=== PATIENT | female | born 1930 | race Caucasian/White ===

== ENCOUNTER → 2016-11-14 | Outpatient (CLI) | payer MEDICARE ==
--- NOTE | 2016-11-14 15:22 | XR ---
EXAMINATION TYPE: XR nasal bone DATE OF EXAM: 11/14/2016 2:43 PM COMPARISON: NONE HISTORY: Pain and bruising TECHNIQUE: 2 view nasal bone supplemented with facial bone study FINDINGS: No acute fractures evident. There is soft tissue swelling over the bridge of the nose. Maxi llary spine appears intact. IMPRESSION: 1. No acute nasal bone fracture
--- NOTE | 2016-11-14 15:23 | XR ---
EXAMINATION TYPE: XR facial bones complete DATE OF EXAM: 11/14/2016 2:43 PM COMPARISON: NONE HISTORY: Chest pain, fall, contusion TECHNIQUE: Facial bones examined in 3 projections FINDINGS: Paranasal sinuses appear clear. The septum is midline. No acute fractures are identified. O rbital floors appear intact. Sella is unremarkable. IMPRESSION: 1. Normal facial bone study.
--- NOTE | 2016-11-14 15:24 | XR ---
EXAMINATION TYPE: XR chest 2V DATE OF EXAM: 11/14/2016 2:43 PM COMPARISON: September 27, 2015 HISTORY: Shortness of breath TECHNIQUE: Frontal and lateral views of the chest are obtained. FINDINGS: Scattered senescent parenchymal changes noted. Hyperinflation compatible with COPD. No evidence for infiltrate. No evidence for atelectasis. Heart size is stable. Mediastinal structures are stable and grossly unremarkable. There is a large fixed hiatal hernia. No evidence for hilar prominence. Degenerative changes dorsal spine. IMPRESSION: 1. No evidence for acute pulmonary disease.
== END | disposition home or self-care (01) ==
LOC: RADXRMAIN 14:02
PROVIDERS: ATTEND Family Medicine
DX: S02.92XS Unspecified fracture of facial bones, sequela (principal); R07.9 Chest pain, unspecified
CPT/HCPCS: 70150; 70160; 71020

== ENCOUNTER 2017-09-24 23:16 | Emergency (ER) | payer MEDICARE ==
[2017-09-24 23:34] VITALS: PULSE 76; RESP 18; TEMP 97.1
--- NOTE | 2017-09-25 00:49 | ED ---
Back Pain HPI - General Chief Complaint: Back Pain/Injury Stated Complaint: Back Spasms Time Seen by Provider: 09/24/17 23:36 Source: patient, EMS, RN notes reviewed Limitations: no limitations - History of Present Illness Initial Comments: This is an 87-year-old female presents to the emergency department with chief complaint of back spasms. Patient states that she developed mid back pain that radiates to the left side of her pain yesterday. She describes these as back spasms. She states the pain is made worse with going from sitting to standing position and with walking. She states that the pain started yesterday but has worsened today. She states she does have a history of sciatica. Patient states that she has not had any recent falls, injuries or trauma. 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 On Friday after having family over, patient of vacuum and when feels like that might have been what injured her back. She denies any chest pain or shortness of breath, fevers or chills, abdominal pain, nausea or vomiting, diarrhea or constipation, dysuria or hematuria. Patient states that she did take Tylenol at 7, 2 in 10:00 today. - Related Data Home Medications Medication Instructions Recorded Confirmed Aspirin 81 mg PO DAILY 08/22/15 09/24/17 Losartan-Hctz 50-12.5 mg [Hyzaar 1 tab PO DAILY 08/22/15 09/24/17 50-12.5] Simvastatin [Zocor] 40 mg PO DAILY 08/22/15 09/24/17 Metoprolol Succinate [Toprol XL] 25 mg PO BID 09/26/15 09/24/17 Multivitamins, Thera [Multivitamin] 1 tab PO DAILY 09/26/15 09/24/17 Previous Rx's Medication Instructions Recorded Diazepam [Valium] 2 mg PO TID #12 tab 09/25/17 Allergies Allergy/AdvReac Type Severity Reaction Status Date / Time Penicillins Allergy Rash/Hives Verified 09/24/17 23:45 enoxaparin sodium AdvReac Unknown Verified 09/24/17 23:45 [From Lovenox] heparin AdvReac Unknown Verified 09/24/17 23:45 Review of Systems ROS Statement: Those systems with pertinent positive or pertinent negative responses have been documented in the HPI. ROS Other: All systems not noted in ROS Statement are negative. Past Medical History Past Medical History: Cancer, Heart Failure, GERD/Reflux, Hyperlipidemia, Hypertension, Osteoarthritis (OA), Pneumonia Additional Past Medical History / Comment(s): pne x2, basal cell skin ca(face), ddd, sciatic nerce pain,diverticultis History of Any Multi-Drug Resistant Organisms: MRSA Date of last positivie culture/infection: 03-28-15/ 06-09-15 MDRO Source:: left hand 2nd digit/ lt breast Past Surgical History: Adenoidectomy, Cholecystectomy, Hysterectomy, Orthopedic Surgery, Tonsillectomy Additional Past Surgical History / Comment(s): lee KNEE REPLACEMENTS,lee CARPAL TUNNEL,bunionectomy lt foot has screws in place, rt foot screws removed, neuroma 's removed from 2 toes, deceated septum repair, partial hysterectomy, kidney stone, colonoscopy. Past Anesthesia/Blood Transfusion Reactions: No Reported Reaction Past Psychological History: Depression Smoking Status: Never smoker Past Alcohol Use History: Rare Past Drug Use History: None Reported - Past Family History Father Family Medical History: Congestive Heart Failure (CHF) Mother Family Medical History: Cancer Additional Family Medical History / Comment(s): lung cancer General Exam - General Exam Comments Initial Comments: General: Awake and alert, well-developed; in no apparent distress. HEENT: Head atraumatic, normocephalic. Pupils are equal, round and reactive to light. Extraocular movements intact. Oropharynx moist without erythema or exudate. Neck: Supple. Normal ROM. Cardiovascular: Regular rate and rhythm. No murmurs, rubs or gallops. Chest symmetrical. Respiratory: Lungs clear to auscultation bilaterally. No wheezes, rales or rhonchi. Normal respiratory effort with no use of accessory muscles. Abdomen: Soft, non-tender, non-distended. No rigidity, rebound or guarding. Normal bowel sounds in all 4 quadrants. Musculoskeletal: Normal ROM, no tenderness bilateral upper and lower extremities. Normal range of motion of spine. There is left sided thoracic paraspinal muscle tenderness on palpation. No CVA tenderness bilaterally. No bilateral pedal edema. Pedal and radial pulses are 2+ equal and palpable bilaterally. Skin: [place], warm and dry without rashes or lesions. Neurological: Alert and oriented x3. CN II-XII grossly intact. Speech is fluent and answers are appropriate. No focal neuro deficits. Psychiatric: Normal mood and affect. No overt signs of depression or anxiety noted. l Limitations: no limitations Course Vital Signs 09/24/17 23:29 Temperature 97.1 F L Pulse Rate 76 Respiratory 18 Rate Blood Pressure 169/76 O2 Sat by Pulse 99 Oximetry Medical Decision Making - Medical Decision Making This is an 87-year-old female presents to the emergency department with chief complaint of back spasms. Patient states she feels like she may have injured her back while vacuuming on Friday. She reports mid back spasms that radiate to the left side. She states the pain is made worse with going from sitting to standing position and with walking. She states she has been taking Tylenol. Denies any urinary symptoms. Has no other complaints. Patient's vital signs are stable and she is in no acute distress. A full workup was performed. CBC, CMP, cardiac profile/troponin and UA were unremarkable. X-ray thoracic spine revealed no acute changes. Chest x-ray revealed no acute cardiopulmonary processes. Patient will be discharged home with a prescription for Valium and recommended taking Tylenol. Patient is to follow-up with her primary care provider. She is in agreement with [facility] voices understanding. all questions were answered. - Lab Data Result diagrams: 09/25/17 00:50 09/25/17 00:50 Lab Results 09/25/17 09/25/17 09/25/17 Range/Units 00:50 00:50 00:50 WBC 9.5 (3.8-10.6) k/uL RBC 4.11 (3.80-5.40) m/uL Hgb 13.2 (11.4-16.0) gm/dL Hct 37.6 (34.0-46.0) % MCV 91.5 (80.0-100.0) fL MCH 32.2 (25.0-35.0) pg MCHC 35.2 (31.0-37.0) g/dL RDW 12.3 (11.5-15.5) % Plt Count 222 (150-450) k/uL Neutrophils % 86 % Lymphocytes % 8 % Monocytes % 4 % Eosinophils % 1 % Basophils % 0 % Neutrophils # 8.2 H (1.3-7.7) k/uL Lymphocytes # 0.8 L (1.0-4.8) k/uL Monocytes # 0.4 (0-1.0) k/uL Eosinophils # 0.1 (0-0.7) k/uL Basophils # 0.0 (0-0.2) k/uL PT (9.0-12.0) sec INR (<1.2) APTT (22.0-30.0) sec Sodium 136 L (137-145) mmol/L Potassium 3.9 (3.5-5.1) mmol/L Chloride 102 (98-107) mmol/L Carbon Dioxide 23 (22-30) mmol/L Anion Gap 11 mmol/L BUN 31 H (7-17) mg/dL Creatinine 0.70 (0.52-1.04) mg/dL Est GFR (CKD-EPI)AfAm >90 (>60 ml/min/1.73 sqM) Est GFR (CKD-EPI)NonAf 79 (>60 ml/min/1.73 sqM) Glucose 110 H (74-99) mg/dL Calcium 9.6 (8.4-10.2) mg/dL Total Bilirubin 0.6 (0.2-1.3) mg/dL AST 30 (14-36) U/L ALT 32 (9-52) U/L Alkaline Phosphatase 66 (38-126) U/L Total Creatine Kinase 45 (30-135) U/L CK-MB (CK-2) 1.8 (0.0-2.4) ng/mL CK-MB (CK-2) Rel Index 4.0 Troponin I <0.012 (0.000-0.034) ng/mL Total Protein 6.3 (6.3-8.2) g/dL Albumin 3.7 (3.5-5.0) g/dL Urine Color Urine Appearance (Clear) Urine pH (5.0-8.0) Ur Specific [place] (1.001-1.035) Urine Protein (Negative) Urine Glucose (UA) (Negative) Urine Ketones (Negative) Urine Blood (Negative) Urine Nitrite (Negative) Urine Bilirubin (Negative) Urine Urobilinogen (<2.0) mg/dL Ur Leukocyte Esterase (Negative) Urine RBC (0-5) /hpf Urine WBC (0-5) /hpf Ur Squamous Epith Cells (0-4) /hpf Urine Mucus (None) /hpf 09/25/17 09/25/17 Range/Units 00:50 02:00 WBC (3.8-10.6) k/uL RBC (3.80-5.40) m/uL Hgb (11.4-16.0) gm/dL Hct (34.0-46.0) % MCV (80.0-100.0) fL MCH (25.0-35.0) pg MCHC (31.0-37.0) g/dL RDW (11.5-15.5) % Plt Count (150-450) k/uL Neutrophils % % Lymphocytes % % Monocytes % % Eosinophils % % Basophils % % Neutrophils # (1.3-7.7) k/uL Lymphocytes # (1.0-4.8) k/uL Monocytes # (0-1.0) k/uL Eosinophils # (0-0.7) k/uL Basophils # (0-0.2) k/uL PT 10.4 (9.0-12.0) sec INR 1.1 (<1.2) APTT 22.8 (22.0-30.0) sec Sodium (137-145) mmol/L Potassium (3.5-5.1) mmol/L Chloride (98-107) mmol/L Carbon Dioxide (22-30) mmol/L Anion Gap mmol/L BUN (7-17) mg/dL Creatinine (0.52-1.04) mg/dL Est GFR (CKD-EPI)AfAm (>60 ml/min/1.73 sqM) Est GFR (CKD-EPI)NonAf (>60 ml/min/1.73 sqM) Glucose (74-99) mg/dL Calcium (8.4-10.2) mg/dL Total Bilirubin (0.2-1.3) mg/dL AST (14-36) U/L ALT (9-52) U/L Alkaline Phosphatase (38-126) U/L Total Creatine Kinase (30-135) U/L CK-MB (CK-2) (0.0-2.4) ng/mL CK-MB (CK-2) Rel Index Troponin I (0.000-0.034) ng/mL Total Protein (6.3-8.2) g/dL Albumin (3.5-5.0) g/dL Urine Color Yellow Urine Appearance Clear (Clear) Urine pH 6.5 (5.0-8.0) Ur Specific [place] 1.026 (1.001-1.035) Urine Protein Trace H (Negative) Urine Glucose (UA) Negative (Negative) Urine Ketones Negative (Negative) Urine Blood Negative (Negative) Urine Nitrite Negative (Negative) Urine Bilirubin Negative (Negative) Urine Urobilinogen <2.0 (<2.0) mg/dL Ur Leukocyte Esterase Small H (Negative) Urine RBC 3 (0-5) /hpf Urine WBC 4 (0-5) /hpf Ur Squamous Epith Cells <1 (0-4) /hpf Urine Mucus Rare H (None) /hpf - EKG Data EKG Comments: 0:23:03. Normal sinus rhythm. Minimal voltage criteria for LVH, may be normal variant. Ventricular rate 71 bpm, NH interval 192, QRS duration 86, QT/QTc 408/ 443. - Radiology Data Radiology results: report reviewed Chest x-ray impression: Pulmonary fibrotic changes. Large hiatal hernia. There is probably some patchy atelectasis in the right lower lobe. Inspiration is worse than last exam. No gross heart failure. X-ray thoracic spine impression: Multiple thoracic compression fractures are probably not changed significantly compared to old chest x-ray. Disposition Clinical Impression: Thoracic back pain Disposition: HOME SELF-CARE Condition: Good Instructions: Thoracic Back Strain (ED), Muscle Spasm (ED) Additional Instructions: Please take medications as prescribed. Please follow up with primary care provider within 1-2 days. Return to emergency department if symptoms should worsen or any concerns arise. Prescriptions: Diazepam [Valium] 2 mg PO TID #12 tab Referrals: Kristopher Neely DO [Primary Care Provider] - 1-2 days Time of Disposition: 02:28
--- NOTE | 2017-09-25 00:56 | XR ---
EXAMINATION TYPE: XR chest 2V DATE OF EXAM: 09/25/2017 COMPARISON: 11/14/2016 HISTORY: Back pain TECHNIQUE: Frontal and lateral views of the chest are obtained. FINDINGS: There is a hiatal hernia. There is coarse interstitial density in the mid and lower lung f ields. There is no gross heart failure. Thoracic aorta is atherosclerotic and tortuous. There is sign ificant arthritic change in the right shoulder joint. IMPRESSION: Pulmonary fibrotic changes. Large hiatal hernia. There is probably some patchy atelectas is in the right lower lobe. Inspiration is worse than last exam. No gross heart failure.
--- NOTE | 2017-09-25 00:59 | XR ---
EXAMINATION TYPE: XR thoracic spine 2V DATE OF EXAM: 09/25/2017 COMPARISON: Chest x-ray 11/14/2016 HISTORY: Back pain TECHNIQUE: 3 views FINDINGS: There is some thoracic kyphotic deformity. There is 30% anterior wedging of T11. There is 6 0% wedging of T9. There is probably 75% wedging of T7. Vertebra are difficult to be evaluated because of osteopenia. I see no thoracic paraspinal mass. There is a large hiatal hernia. There are some pul monary linear densities over the thoracic spine that obscure the vertebra. IMPRESSION: Multiple thoracic compression fractures are probably not changed significantly compared t o old chest x-ray.
[2017-09-25 01:03] LABS: Basophils % (A) 0 %; Eosinophils # (A) 0.1 k/uL (0-0.7); Eosinophils % (A) 1 %; HCT 37.6 % (34.0-46.0); HGB 13.2 gm/dL (11.4-16.0); Lymphocytes # (A) 0.8 k/uL (1.0-4.8); Lymphocytes % (A) 8 %; MCH 32.2 pg (25.0-35.0); MCHC 35.2 g/dL (31.0-37.0); MCV 91.5 fL (80.0-100.0); Mean Platelet Volume 7.1; Monocytes # (A) 0.4 k/uL (0-1.0); Monocytes % (A) 4 %; Neutrophils # (A) 8.2 k/uL (1.3-7.7); Neutrophils % (A) 86 %; Platelet Count 222 k/uL (150-450); RBC 4.11 m/uL (3.80-5.40); RDW 12.3 % (11.5-15.5); WBC 9.5 k/uL (3.8-10.6)
[2017-09-25 01:12] LABS: INR 1.1 (<1.2); Partial Thromboplastin Time 22.8 sec (22.0-30.0); Prothrombin Time 10.4 sec (9.0-12.0)
[2017-09-25 01:21] LABS: ALT 32 U/L (9-52); AST 30 U/L (14-36); Albumin 3.7 g/dL (3.5-5.0); Alkaline Phosphatase 66 U/L (38-126); Anion Gap 11 mmol/L; Blood Urea Nitrogen 31 mg/dL (7-17); Calcium 9.6 mg/dL (8.4-10.2); Carbon Dioxide 23 mmol/L (22-30); Chloride 102 mmol/L (98-107); Glucose 110 mg/dL (74-99); Potassium 3.9 mmol/L (3.5-5.1); Sodium 136 mmol/L (137-145); Total Bilirubin 0.6 mg/dL (0.2-1.3); Total Protein 6.3 g/dL (6.3-8.2)
[2017-09-25 01:22] LABS: Creatine Kinase 45 U/L (30-135)
[2017-09-25 01:35] LABS: Creatine Kinase MB 1.8 ng/mL (0.0-2.4); Troponin I <0.012 ng/mL (0.000-0.034)
[2017-09-25] MEDS ORDERED: KETOROLAC 30 MG/ML 1 ML VIAL IVP STA (02:01)
[2017-09-25 02:19] LABS: Appearance,Urine Clear (Clear); Bilirubin,Urine Negative (Negative); Blood,Urine Negative (Negative); Color,Urine Yellow; Glucose,Urine (UA) Negative (Negative); Ketones,Urine Negative (Negative); Leukocyte Esterase,Urine Small (Negative); Mucus,Urine Rare /hpf; Nitrite,Urine Negative (Negative); PH, Urine 6.5 (5.0-8.0); Protein,Urine Trace (Negative); RBC,Urine 3 /hpf (0-5); Specific Gravity,Urine 1.026 (1.001-1.035); Squamous Epithelial Cell,Urine <1 /hpf (0-4); Urobilinogen,Urine <2.0 mg/dL (<2.0); WBC,Urine 4 /hpf (0-5)
[2017-09-25 03:06] VITALS: BP 170/90
== END 2017-09-25 03:44 | disposition home or self-care (01) ==
LOC: EC 23:16
DX: M54.6 Pain in thoracic spine (principal); E78.5 Hyperlipidemia, unspecified; I11.0 Hypertensive heart disease with heart failure; I50.9 Heart failure, unspecified; M54.30 Sciatica, unspecified side; Z85.828 Personal history of other malignant neoplasm of skin; Z86.14 Personal history of Methicillin resistant Staphylococcus aureus infection; Z79.82 Long term (current) use of aspirin; Z79.899 Other long term (current) drug therapy; Z88.0 Allergy status to penicillin; Z88.8 Allergy status to other drugs, medicaments and biological substances
CPT/HCPCS: 99284; 96374; 36415; 93005; 80053; 82550; 82553; 84484; 85025; 85610; 85730; 81001; 72070; 71046; J1885

== ENCOUNTER 2017-10-04 11:32 | Inpatient (IN) | payer MEDICARE ==
[2017-10-04] MEDS ORDERED: RX INFO: IV CONTRAST WAS GIVEN 1 EACH MISC MISCELLANE PRN (11:58)
[2017-10-04] MEDS ORDERED: SODIUM CHLORIDE 0.9% 500 ML IV STA (11:58)
[2017-10-04] MEDS ORDERED: HYDROcodone/APAP 5-325MG 1 EACH TAB PO STA (12:02)
--- NOTE | 2017-10-04 12:02 | ED ---
General Adult HPI - General Chief complaint: Back Pain/Injury Stated complaint: Back Pain Time Seen by Provider: 10/04/17 11:37 Source: patient, family, EMS, RN notes reviewed Mode of arrival: EMS Limitations: no limitations - History of Present Illness Initial comments: This is a 87-year-old female presents via EMS with multiple complaints. Patient states that she was seen here week or so ago for back pain. Patient should follow up with her PCP who told her to continue Aleve and tramadol for pain. Patient is now she did medication she has not had a bowel movement. She feels constipated. Patient also cleanser quadrant abdominal pain. She's had a prior cholecystectomy, hysterectomy. Patient denies any chest pain or shortness breath at this time states that she's been having right lower rib pain seemed to radiate around. Patient complained the rest of back pain and her prior to her visit states that she still has issues with this at times. She also complains that she has fracture of her right shoulder. Patient denies any current nausea vomiting. She did state that she had 3 times a molelike to the bathroom and states that she had too much pain/fold on the ground. She isn' t suicidal to the intermittently. She denies any dysuria but has urinary frequency. - Related Data Home Medications Medication Instructions Recorded Confirmed Aspirin 81 mg PO DAILY 08/22/15 09/24/17 Losartan-Hctz 50-12.5 mg [Hyzaar 1 tab PO DAILY 08/22/15 09/24/17 50-12.5] Simvastatin [Zocor] 40 mg PO DAILY 08/22/15 09/24/17 Metoprolol Succinate [Toprol XL] 25 mg PO BID 09/26/15 09/24/17 Multivitamins, Thera [Multivitamin] 1 tab PO DAILY 09/26/15 09/24/17 Previous Rx's Medication Instructions Recorded Cyclobenzaprine [Flexeril] 5 mg PO DAILY #10 tab 09/25/17 Allergies Allergy/AdvReac Type Severity Reaction Status Date / Time Penicillins Allergy Rash/Hives Verified 09/24/17 23:45 enoxaparin sodium AdvReac Unknown Verified 09/24/17 23:45 [From Lovenox] heparin AdvReac Unknown Verified 09/24/17 23:45 Review of Systems ROS Statement: Those systems with pertinent positive or pertinent negative responses have been documented in the HPI. ROS Other: All systems not noted in ROS Statement are negative. Past Medical History Past Medical History: Cancer, Heart Failure, GERD/Reflux, Hyperlipidemia, Hypertension, Osteoarthritis (OA), Pneumonia Additional Past Medical History / Comment(s): pne x2, basal cell skin ca(face), ddd, sciatic nerce pain,diverticultis History of Any Multi-Drug Resistant Organisms: MRSA Date of last positivie culture/infection: 03-28-15/ 06-09-15 MDRO Source:: left hand 2nd digit/ lt breast Past Surgical History: Adenoidectomy, Cholecystectomy, Hysterectomy, Orthopedic Surgery, Tonsillectomy Additional Past Surgical History / Comment(s): lee KNEE REPLACEMENTS,lee CARPAL TUNNEL,bunionectomy lt foot has screws in place, rt foot screws removed, neuroma 's removed from 2 toes, deceated septum repair, partial hysterectomy, kidney stone, colonoscopy. Past Anesthesia/Blood Transfusion Reactions: No Reported Reaction Past Psychological History: Depression Smoking Status: Never smoker Past Alcohol Use History: Rare Past Drug Use History: None Reported - Past Family History Father Family Medical History: Congestive Heart Failure (CHF) Mother Family Medical History: Cancer Additional Family Medical History / Comment(s): lung cancer General Exam Limitations: no limitations General appearance: alert, in no apparent distress Head exam: Present: atraumatic, normocephalic, normal inspection Respiratory exam: Present: normal lung sounds bilaterally. Absent: respiratory distress, wheezes, rales, rhonchi, stridor, chest wall tenderness Cardiovascular Exam: Present: regular rate, normal rhythm, normal heart sounds. Absent: systolic murmur, diastolic murmur, rubs, gallop, clicks GI/Abdominal exam: Present: soft, normal bowel sounds. Absent: distended, tenderness, guarding, rebound, rigid Back exam: Present: full ROM. Absent: tenderness, CVA tenderness (R), CVA tenderness (L) Neurological exam: Present: alert, oriented X3, CN II-XII intact. Absent: motor sensory deficit Skin exam: Present: warm, dry, intact, normal color. Absent: rash Course Vital Signs 10/04/17 10/04/17 11:36 14:19 Temperature 97.2 F L Pulse Rate 68 74 Respiratory 16 15 Rate Blood Pressure 157/68 149/70 O2 Sat by Pulse 97 98 Oximetry Medical Decision Making - Medical Decision Making 87-year-old female presented for fall back pain abdominal pain. Patient be admitted at this time for dehydration, hyponatremia, compression fracture vertebral, pubic rami fracture. - Lab Data Result diagrams: 10/04/17 12:20 10/04/17 12:20 Lab Results 10/04/17 10/04/17 10/04/17 Range/Units 12:20 12:20 12:20 WBC 13.7 H (3.8-10.6) k/uL RBC 3.71 L (3.80-5.40) m/uL Hgb 12.3 (11.4-16.0) gm/dL Hct 32.9 L (34.0-46.0) % MCV 88.7 (80.0-100.0) fL MCH 33.1 (25.0-35.0) pg MCHC 37.3 H (31.0-37.0) g/dL RDW 12.4 (11.5-15.5) % Plt Count 130 L (150-450) k/uL Neutrophils % 91 % Lymphocytes % 4 % Monocytes % 4 % Eosinophils % 1 % Basophils % 0 % Neutrophils # 12.5 H (1.3-7.7) k/uL Lymphocytes # 0.5 L (1.0-4.8) k/uL Monocytes # 0.5 (0-1.0) k/uL Eosinophils # 0.1 (0-0.7) k/uL Basophils # 0.0 (0-0.2) k/uL PT (9.0-12.0) sec INR (<1.2) APTT (22.0-30.0) sec Sodium 123 L (137-145) mmol/L Potassium 4.6 (3.5-5.1) mmol/L Chloride 90 L (98-107) mmol/L Carbon Dioxide 23 (22-30) mmol/L Anion Gap 10 mmol/L BUN 22 H (7-17) mg/dL Creatinine 0.54 (0.52-1.04) mg/dL Est GFR (CKD-EPI)AfAm >90 (>60 ml/min/1.73 sqM) Est GFR (CKD-EPI)NonAf 86 (>60 ml/min/1.73 sqM) Glucose 98 (74-99) mg/dL Plasma Lactic Acid Ervin 1.1 (0.7-2.0) mmol/L Calcium 8.9 (8.4-10.2) mg/dL Total Bilirubin 1.6 H (0.2-1.3) mg/dL AST 63 H (14-36) U/L ALT 36 (9-52) U/L Alkaline Phosphatase 65 (38-126) U/L Total Creatine Kinase (30-135) U/L CK-MB (CK-2) (0.0-2.4) ng/mL CK-MB (CK-2) Rel Index Total Protein 6.4 (6.3-8.2) g/dL Albumin 3.6 (3.5-5.0) g/dL Amylase 42 (30-110) U/L Lipase 109 (23-300) U/L Urine Color Urine Appearance (Clear) Urine pH (5.0-8.0) Ur Specific [place] (1.001-1.035) Urine Protein (Negative) Urine Glucose (UA) (Negative) Urine Ketones (Negative) Urine Blood (Negative) Urine Nitrite (Negative) Urine Bilirubin (Negative) Urine Urobilinogen (<2.0) mg/dL Ur Leukocyte Esterase (Negative) 10/04/17 10/04/17 10/04/17 Range/Units 12:20 12:20 12:52 WBC (3.8-10.6) k/uL RBC (3.80-5.40) m/uL Hgb (11.4-16.0) gm/dL Hct (34.0-46.0) % MCV (80.0-100.0) fL MCH (25.0-35.0) pg MCHC (31.0-37.0) g/dL RDW (11.5-15.5) % Plt Count (150-450) k/uL Neutrophils % % Lymphocytes % % Monocytes % % Eosinophils % % Basophils % % Neutrophils # (1.3-7.7) k/uL Lymphocytes # (1.0-4.8) k/uL Monocytes # (0-1.0) k/uL Eosinophils # (0-0.7) k/uL Basophils # (0-0.2) k/uL PT 10.8 (9.0-12.0) sec INR 1.1 (<1.2) APTT 21.3 L (22.0-30.0) sec Sodium (137-145) mmol/L Potassium (3.5-5.1) mmol/L Chloride (98-107) mmol/L Carbon Dioxide (22-30) mmol/L Anion Gap mmol/L BUN (7-17) mg/dL Creatinine (0.52-1.04) mg/dL Est GFR (CKD-EPI)AfAm (>60 ml/min/1.73 sqM) Est GFR (CKD-EPI)NonAf (>60 ml/min/1.73 sqM) Glucose (74-99) mg/dL Plasma Lactic Acid Ervin (0.7-2.0) mmol/L Calcium (8.4-10.2) mg/dL Total Bilirubin (0.2-1.3) mg/dL AST (14-36) U/L ALT (9-52) U/L Alkaline Phosphatase (38-126) U/L Total Creatine Kinase 173 H (30-135) U/L CK-MB (CK-2) 7.4 H* (0.0-2.4) ng/mL CK-MB (CK-2) Rel Index 4.3 Total Protein (6.3-8.2) g/dL Albumin (3.5-5.0) g/dL Amylase (30-110) U/L Lipase (23-300) U/L Urine Color Yellow Urine Appearance Clear (Clear) Urine pH 6.5 (5.0-8.0) Ur Specific [place] 1.010 (1.001-1.035) Urine Protein Negative (Negative) Urine Glucose (UA) Negative (Negative) Urine Ketones Trace H (Negative) Urine Blood Negative (Negative) Urine Nitrite Negative (Negative) Urine Bilirubin Negative (Negative) Urine Urobilinogen <2.0 (<2.0) mg/dL Ur Leukocyte Esterase Negative (Negative) Disposition Clinical Impression: Compression fracture, Pubic ramus fracture, Fall, Dehydration, Hyponatremia Disposition: ADMITTED IP TO THIS [facility] Condition: Stable Referrals: Kristopher Neely DO [Primary Care Provider] - 1-2 days Time of Disposition: 14:56
[2017-10-04 12:51] LABS: Basophils % (A) 0 %; Eosinophils # (A) 0.1 k/uL (0-0.7); Eosinophils % (A) 1 %; HCT 32.9 % (34.0-46.0); HGB 12.3 gm/dL (11.4-16.0); Lymphocytes # (A) 0.5 k/uL (1.0-4.8); Lymphocytes % (A) 4 %; MCH 33.1 pg (25.0-35.0); MCHC 37.3 g/dL (31.0-37.0); MCV 88.7 fL (80.0-100.0); Mean Platelet Volume 8.2; Monocytes # (A) 0.5 k/uL (0-1.0); Monocytes % (A) 4 %; Neutrophils # (A) 12.5 k/uL (1.3-7.7); Neutrophils % (A) 91 %; Platelet Count 130 k/uL (150-450); RBC 3.71 m/uL (3.80-5.40); RDW 12.4 % (11.5-15.5); WBC 13.7 k/uL (3.8-10.6)
[2017-10-04 13:06] LABS: Amylase 42 U/L (30-110); Anion Gap 10 mmol/L; Calcium 8.9 mg/dL (8.4-10.2); Carbon Dioxide 23 mmol/L (22-30); Chloride 90 mmol/L (98-107); Glucose 98 mg/dL (74-99); Lipase 109 U/L (23-300); Sodium 123 mmol/L (137-145)
[2017-10-04 13:09] LABS: INR 1.1 (<1.2)
[2017-10-04 13:09] LABS: Appearance,Urine Clear (Clear); Bilirubin,Urine Negative (Negative); Blood,Urine Negative (Negative); Color,Urine Yellow; Glucose,Urine (UA) Negative (Negative); Ketones,Urine Trace (Negative); Leukocyte Esterase,Urine Negative (Negative); Nitrite,Urine Negative (Negative); PH, Urine 6.5 (5.0-8.0); Protein,Urine Negative (Negative); Urobilinogen,Urine <2.0 mg/dL (<2.0)
[2017-10-04 13:11] LABS: Partial Thromboplastin Time 21.3 sec (22.0-30.0); Prothrombin Time 10.8 sec (9.0-12.0)
[2017-10-04 13:17] LABS: Potassium 4.6 mmol/L (3.5-5.1)
[2017-10-04 13:18] LABS: Albumin 3.6 g/dL (3.5-5.0); Blood Urea Nitrogen 22 mg/dL (7-17); Total Bilirubin 1.6 mg/dL (0.2-1.3); Total Protein 6.4 g/dL (6.3-8.2)
[2017-10-04 13:19] LABS: ALT 36 U/L (9-52); AST 63 U/L (14-36); Alkaline Phosphatase 65 U/L (38-126)
[2017-10-04 13:24] LABS: Creatine Kinase MB 7.4 ng/mL (0.0-2.4)
--- NOTE | 2017-10-04 14:31 | CT ---
EXAMINATION TYPE: CT abdomen pelvis w con DATE OF EXAM: 10/04/2017 COMPARISON: CT lower extremity 06/04/2012, plain film 09/19/2015 pelvis HISTORY: back pain CT DLP: 1059 (CTA chest and abd pelvis) mGycm Automated exposure control for dose reduction was used. TECHNIQUE: Helical acquisition of images from the lung bases through the pelvis have been completed. CONTRAST: Performed without Oral Contrast and with IV Contrast, patient injected with 100 mL of Isovue 370. FINDINGS: There is an intrathoracic stomach present. Coronary artery calcifications are present LUNG BASES: Subpleural nodule in the right lower lobe on image #1 measures only approximately 6 mm, s ome basilar atelectatic changes are present, no pleural or pericardial effusion. AORTA: Atheromatous changes are present, the aorta is tortuous, no evident aneurysm LIVER/GB: Prominence of intrahepatic biliary ducts is likely due to postcholecystectomy change, some scattered low dense foci are present within the liver which likely represent cysts. PANCREAS: There is some prominence of the pancreatic duct. SPLEEN: Suspect a subcentimeter aneurysm in the splenic hilum measuring only 9.8 mm. ADRENALS: No significant abnormality is seen. KIDNEYS: Extrarenal pelves are present bilaterally. No renal mass. REPRODUCTIVE ORGANS: The uterus is not seen. Suspect there is ovarian tissue in the left hemipelvis a nd possibly right BOWEL: Large amount of retained fecal debris is present throughout the distribution of the colon FREE AIR: No Free Air visible. ASCITES: None visible. PELVIC ADENOPATHY: None visualized. RETROPERITONEAL ADENOPATHY: No Retroperitoneal Adenopathy visible. URINARY BLADDER: Large amount of retained urine within the bladder. OSSEOUS STRUCTURES: Spondylolisthesis grade 1 at L4-5, L5-S1. Retrolisthesis grade 1 L2-3. There is multilevel spondylosis. Vacuum disc phenomenon present at multiple levels. Marked facet arthropathy c hanges are present. T11 shows anterior wedge compression deformity with loss of height of 25-50%. Chasity pect a nondisplaced inferior pubic ramus fracture on the right on indeterminate age. There is an angu lation at the cortex on axial image 71. IMPRESSION: DEGENERATIVE DISC DISEASE, FACET ARTHROPATHY, SPINAL LISTHESIS. INTRATHORACIC STOMACH. CORONARY ARTER Y DISEASE. POSTOP CHANGES. INDETERMINATE LUNG NODULE, FOLLOW-UP RECOMMENDED. QUESTIONABLE FRACTURE IN FERIOR PUBIC RAMUS ON THE RIGHT OF INDETERMINATE AGE. CORRELATE FOR FECAL STASIS. ADDITIONAL FINDINGS ABOVE.
--- NOTE | 2017-10-04 14:38 | CT ---
EXAMINATION TYPE: CT chest angio for PE DATE OF EXAM: 10/04/2017 COMPARISON: CT abdomen pelvis same date HISTORY: back pain CT DLP: 1059 (CTA chest and abd pelvis) mGycm Automated exposure control for dose reduction was used. CONTRAST: CT Chest for pulmonary embolism performed with with IV Contrast, patient injected with 100 mL of Isov ue 370. FINDINGS: LUNGS: Multiple subcentimeter subpleural nodules are present within the lungs. There is atelectatic c hange present at the lung bases. There is no pleural effusion or pneumothorax seen. The tracheobron chial tree is patent. MEDIASTINUM: There is satisfactory enhancement of the pulmonary artery and its branches, there is no CT evidence for pulmonary embolism. There are no greater than 1 cm hilar or mediastinal lymph nodes. No pericardial effusion is seen. AORTA: No additional significant abnormality is seen. OTHER: The pulmonary artery is dilated, correlate for possible pulmonary artery hypertension. Intrath oracic stomach is present. Increased AP diameter of the chest may be indicative of COPD. Arthropathy noted within the shoulders is extensive. Multiple wedge compression fractures in the thoracic spine w ith resulting kyphosis are present, there is facet arthropathy. Degenerative disc changes are present . IMPRESSION: Osteoporotic compression fractures. No evident pulmonary embolism. Correlate for pulmonary artery hyp ertension. Intrathoracic stomach. Additional findings above, follow-up for indeterminate pulmonary no dules is suggested.
[2017-10-04] MEDS ORDERED: MORPHINE SULFATE 4MG/4ML SYRG IV PRN (14:57)
[2017-10-04] MEDS ORDERED: NALOXONE 0.4 MG/ML 1 ML VIAL IV PRN (14:57)
[2017-10-04] MEDS ORDERED: BISACODYL 5 MG TABLET.DR PO PRN (14:57)
[2017-10-04] MEDS ORDERED: HYDROcodone/APAP 5-325MG 1 EACH TAB PO PRN (14:57)
[2017-10-04] MEDS ORDERED: ONDANSETRON 4 MG/2 ML VIAL IVP PRN (14:57)
[2017-10-04 17:02] VITALS: BMI 21.4
[2017-10-04] MEDS: SODIUM CHLORIDE 0.9% 1,000 ML IV SCH (17:05)
[2017-10-04] MEDS ORDERED: SENNOSIDES 8.6 MG TAB PO PRN (18:16)
[2017-10-04] MEDS ORDERED: POLYETHYLENE GLYCOL 3350 17 GM POWD.PACK PO PRN (18:16)
--- NOTE | 2017-10-04 18:27 | P.HPIM ---
History of Present Illness 87-year-old pleasant female had a fall on Friday is complaining of pain in the back 8/10 in severity wrapping around the abdomen is constipated since 6 days. Patient has seen her primary care physician who gave her naproxen and Toradol patient is found to have compression fracture and pelvic and pubic family fracture as her pain is not well controlled and because of her constipation patient came to ER. CAT scan of the abdomen did show some constipation, T11 compression fracture along with right inferior pubic family fracture. Patient is found to be severely hyponatremic patient is on hydrochlorothiazide and losartan at home hydrochlorothiazide contributing to her hyponatremia. Will repeat basic metabolic profile patient is on surfaces of normal saline which is expected to improve her hyponatremia, unless it is SIADH from pain. Patient had a mechanical fall without any syncope Review of Systems REVIEW OF SYSTEMS: CONSTITUTIONAL: No fever, no malaise, no fatigue. HEENT: No recent visual problems or hearing problems. Denied any sore throat. CARDIOVASCULAR: No chest pain, orthopnea, PND, no palpitations, no syncope. PULMONARY: No shortness of breath, no cough, no hemoptysis. GASTROINTESTINAL: No diarrhea, no nausea, no vomiting. NEUROLOGICAL: No headaches, no weakness, no numbness. HEMATOLOGICAL: Denies any bleeding or petechiae. GENITOURINARY: Denies any burning micturition, frequency, or urgency. MUSCULOSKELETAL/RHEUMATOLOGICAL: As mentioned in HPI ENDOCRINE: Denies any polyuria or polydipsia. The rest of the 14-point review of systems is negative. Past Medical History Past Medical History: Cancer, Heart Failure, Hyperlipidemia, Hypertension, Osteoarthritis (OA), Pneumonia Additional Past Medical History / Comment(s): pne x2, basal cell skin ca(face), ddd, sciatic nerce pain,diverticultis History of Any Multi-Drug Resistant Organisms: MRSA Date of last positivie culture/infection: 03-28-15/ 06-09-15 MDRO Source:: left hand 2nd digit/ lt breast Past Surgical History: Adenoidectomy, Cholecystectomy, Hysterectomy, Orthopedic Surgery, Tonsillectomy Additional Past Surgical History / Comment(s): lee KNEE REPLACEMENTS,lee CARPAL TUNNEL,bunionectomy lt foot has screws in place, rt foot screws removed, neuroma 's removed from 2 toes, deceated septum repair, partial hysterectomy, kidney stone, colonoscopy. Past Anesthesia/Blood Transfusion Reactions: No Reported Reaction Past Psychological History: Depression Additional Psychological History / Comment(s): pt just lost her spouse in july 2015 was 64 years gets tearfull when speaking of him, has periods of sadness but denies any thoughts of harming self. lives alone in own home was independant up till a week ago when loswer back pain got so bad had diff walking-had to use a cane. Smoking Status: Never smoker Past Alcohol Use History: Rare Past Drug Use History: None Reported - Past Family History Father Family Medical History: Congestive Heart Failure (CHF) Mother Family Medical History: Cancer Additional Family Medical History / Comment(s): lung cancer Medications and Allergies Home Medications Medication Instructions Recorded Confirmed Type Aspirin 81 mg PO DAILY 08/22/15 10/04/17 History Losartan-Hctz 50-12.5 mg [Hyzaar 1 tab PO DAILY 08/22/15 10/04/17 History 50-12.5] Simvastatin [Zocor] 40 mg PO DAILY 08/22/15 10/04/17 History Metoprolol Succinate [Toprol XL] 25 mg PO BID 09/26/15 10/04/17 History Multivitamins, Thera [Multivitamin] 1 tab PO DAILY 09/26/15 10/04/17 History Cyclobenzaprine [Flexeril] 5 mg PO DAILY #10 tab 09/25/17 10/04/17 Rx Naproxen Sodium [Aleve] 220 mg PO BID PRN 10/04/17 10/04/17 History traMADol HCl [Ultram] 50 mg PO TID PRN 10/04/17 10/04/17 History Allergies Allergy/AdvReac Type Severity Reaction Status Date / Time Penicillins Allergy Rash/Hives Verified 10/04/17 15:11 enoxaparin sodium AdvReac Unknown Verified 10/04/17 15:11 [From Lovenox] heparin AdvReac Unknown Verified 10/04/17 15:11 Physical Exam Vitals: Vital Signs Temp Pulse Pulse Resp BP BP Pulse Ox 10/04/17 16:10 97.9 F 76 16 176/79 98 10/04/17 15:54 98.6 F 10/04/17 15:53 70 18 149/66 98 10/04/17 15:03 78 16 170/79 98 10/04/17 14:19 74 15 149/70 98 10/04/17 11:36 97.2 F L 68 16 157/68 97 Intake and Output 10/04/17 10/04/17 10/04/17 06:59 14:59 22:59 Other: Voiding Method Bedpan Incontinent Weight 49.895 kg 49.895 kg PHYSICAL EXAMINATION: GENERAL: The patient is alert and oriented x3, not in any acute distress. Well developed, well nourished. HEENT: Pupils are round and equally reacting to light. EOMI. No scleral icterus. No conjunctival pallor. Normocephalic, atraumatic. No pharyngeal erythema. No thyromegaly. CARDIOVASCULAR: S1 and S2 present. No murmurs, rubs, or gallops. PULMONARY: Chest is clear to auscultation, no wheezing or crackles. ABDOMEN: Soft, nontender, nondistended, bowel sounds MUSCULOSKELETAL: No joint swelling or deformity. EXTREMITIES: No cyanosis, clubbing, or pedal edema. NEUROLOGICAL: Gross neurological examination did not reveal any focal deficits. SKIN: No rashes. Results CBC & Chem 7: 10/04/17 12:20 10/04/17 12:20 Labs: Abnormal Lab Results - Last 24 Hours (Table) 10/04/17 10/04/17 10/04/17 Range/Units 12:20 12:20 12:20 WBC 13.7 H (3.8-10.6) k/uL RBC 3.71 L (3.80-5.40) m/uL Hct 32.9 L (34.0-46.0) % MCHC 37.3 H (31.0-37.0) g/dL Plt Count 130 L (150-450) k/uL Neutrophils # 12.5 H (1.3-7.7) k/uL Lymphocytes # 0.5 L (1.0-4.8) k/uL APTT 21.3 L (22.0-30.0) sec Sodium 123 L (137-145) mmol/L Chloride 90 L (98-107) mmol/L BUN 22 H (7-17) mg/dL Total Bilirubin 1.6 H (0.2-1.3) mg/dL AST 63 H (14-36) U/L Total Creatine Kinase (30-135) U/L CK-MB (CK-2) (0.0-2.4) ng/mL Urine Ketones (Negative) 10/04/17 10/04/17 Range/Units 12:20 12:52 WBC (3.8-10.6) k/uL RBC (3.80-5.40) m/uL Hct (34.0-46.0) % MCHC (31.0-37.0) g/dL Plt Count (150-450) k/uL Neutrophils # (1.3-7.7) k/uL Lymphocytes # (1.0-4.8) k/uL APTT (22.0-30.0) sec Sodium (137-145) mmol/L Chloride (98-107) mmol/L BUN (7-17) mg/dL Total Bilirubin (0.2-1.3) mg/dL AST (14-36) U/L Total Creatine Kinase 173 H (30-135) U/L CK-MB (CK-2) 7.4 H* (0.0-2.4) ng/mL Urine Ketones Trace H (Negative) Thrombosis Risk Factor Assmnt - Choose All That Apply Each Risk Factor Represents 3 Points: Age 75 years or older Each Risk Factor Represents 5 Points: Hip, pelvis, or leg fracture (< 1 month) Thrombosis Risk Factor Assessment Total Risk Factor Score: 8 Thrombosis Risk Factor Assessment Level: High Risk Assessment and Plan Plan: -Fall and compression fracture PT or OT will a valid the patient. Lupe surgery was consulted but I do not believe there will be any surgical intervention at this point of time for pubic ramus fracture or compression fracture. -Constipation Will use MiraLAX and senna. Patient is not on opiates at at this time. Patient is was started on morphine and Sharples which will be discontinued patient was started on Toradol and Tylenol for pain. -23 anemia probably secondary to hydrocodone thiazide which will risk and urine patient is on IV fluids -Hypertension elevated blood pressures are secondary to pain patient was started back on losartan -Patient will need GI prophylaxis because of nonsteroidal anti-inflammatory medications Patient will also require pharmacologic DVT prophylaxis which will do the subcutaneous heparin twice a day. -Hyperlipidemia continue with statin
[2017-10-04] MEDS: FAMOTIDINE 20 MG TAB PO SCH (19:45)
[2017-10-04] MEDS: KETOROLAC 30 MG/ML 1 ML VIAL IVP PRN (21:35)
[2017-10-04] MEDS: HEPARIN SODIUM,PORCINE 5,000 UNIT/ML 1 ML VIAL SQ SCH (22:02)
[2017-10-05] MEDS: SODIUM CHLORIDE 0.9% 1,000 ML IV SCH (05:48)
[2017-10-05 06:46] LABS: HCT 34.2 % (34.0-46.0); HGB 12.2 gm/dL (11.4-16.0); MCH 32.3 pg (25.0-35.0); MCHC 35.8 g/dL (31.0-37.0); MCV 90.3 fL (80.0-100.0); Mean Platelet Volume 6.6; RBC 3.78 m/uL (3.80-5.40); RDW 12.5 % (11.5-15.5); WBC 7.8 k/uL (3.8-10.6)
[2017-10-05 06:56] LABS: Platelet Count 300 k/uL (150-450)
[2017-10-05 06:57] LABS: Anion Gap 6 mmol/L; Blood Urea Nitrogen 11 mg/dL (7-17); Calcium 8.5 mg/dL (8.4-10.2); Carbon Dioxide 27 mmol/L (22-30); Chloride 98 mmol/L (98-107); Glucose 89 mg/dL (74-99); Potassium 3.3 mmol/L (3.5-5.1); Sodium 131 mmol/L (137-145)
[2017-10-05] MEDS: HEPARIN SODIUM,PORCINE 5,000 UNIT/ML 1 ML VIAL SQ SCH ×2 (08:41→21:39)
[2017-10-05] MEDS: FAMOTIDINE 20 MG TAB PO SCH ×2 (08:43→19:19)
[2017-10-05] MEDS: LOSARTAN 50 MG TAB PO SCH (08:43)
--- NOTE | 2017-10-05 09:29 | P.CNOR ---
History of Present Illness - HPI Consult date: 10/05/17 History of present illness: This is an 87 year-old female who is admitted for back pain and constipation. Patient had a fall on 10/01/2017. Orthopedics is consulted for compression fracture and pelvic fracture found on CT scan. Today patient complains of back pain and states that she has not had a bowel movement in 5 days. Patient a poor historian. There is no family present in the room. Patient denies fever/chills, numbness, weakness or tingling. Review of Systems See HPI. Past Medical History Past Medical History: Cancer, Heart Failure, Hyperlipidemia, Hypertension, Osteoarthritis (OA), Pneumonia Additional Past Medical History / Comment(s): pne x2, basal cell skin ca(face), ddd, sciatic nerce pain,diverticultis History of Any Multi-Drug Resistant Organisms: MRSA Year Discovered:: 03-28-15/ 06-09-15 MDRO Source:: left hand 2nd digit/ lt breast Past Surgical History: Adenoidectomy, Cholecystectomy, Hysterectomy, Orthopedic Surgery, Tonsillectomy Additional Past Surgical History / Comment(s): lee KNEE REPLACEMENTS,lee CARPAL TUNNEL,bunionectomy lt foot has screws in place, rt foot screws removed, neuroma 's removed from 2 toes, deceated septum repair, partial hysterectomy, kidney stone, colonoscopy. Past Anesthesia/Blood Transfusion Reactions: No Reported Reaction Past Psychological History: Depression Additional Psychological History / Comment(s): pt just lost her spouse in july 2015 was 64 years gets tearfull when speaking of him, has periods of sadness but denies any thoughts of harming self. lives alone in own home was independant up till a week ago when loswer back pain got so bad had diff walking-had to use a cane. Smoking Status: Never smoker Past Alcohol Use History: Rare Past Drug Use History: None Reported - Past Family History Father Family Medical History: Congestive Heart Failure (CHF) Mother Family Medical History: Cancer Additional Family Medical History / Comment(s): lung cancer Medications and Allergies Home Medications Medication Instructions Recorded Confirmed Type Aspirin 81 mg PO DAILY 08/22/15 10/04/17 History Losartan-Hctz 50-12.5 mg [Hyzaar 1 tab PO DAILY 08/22/15 10/04/17 History 50-12.5] Simvastatin [Zocor] 40 mg PO DAILY 08/22/15 10/04/17 History Metoprolol Succinate [Toprol XL] 25 mg PO BID 09/26/15 10/04/17 History Multivitamins, Thera [Multivitamin] 1 tab PO DAILY 09/26/15 10/04/17 History Cyclobenzaprine [Flexeril] 5 mg PO DAILY #10 tab 09/25/17 10/04/17 Rx Naproxen Sodium [Aleve] 220 mg PO BID PRN 10/04/17 10/04/17 History traMADol HCl [Ultram] 50 mg PO TID PRN 10/04/17 10/04/17 History Allergies Allergy/AdvReac Type Severity Reaction Status Date / Time Penicillins Allergy Rash/Hives Verified 10/04/17 15:11 enoxaparin sodium AdvReac Unknown Verified 10/04/17 15:11 [From Lovenox] heparin AdvReac Unknown Verified 10/04/17 15:11 Physical Examination On exam patient is alert and sitting up in bed eating breakfast. Patient pain with range of motion of lower extremities. Patient has full foot and ankle motion bilaterally without pain. Full range of motion of bilateral upper extremities without pain or difficulty. Sensation intact to bilateral upper and lower extremities. Calves are soft and nontender bilaterally. Neurovascular status and circulatory status are intact. Results CT of the abdomen and pelvis dated 10/04/2017 shows: An anterior wedge compression deformity of T11 with loss of height of 25-50%. Suspect a nondisplaced inferior pubic ramus fracture on the right of indeterminate age. Degenerative disc disease, facet arthropathy, spinal listhesis. - Labs Labs: Abnormal Lab Results - Last 24 Hours (Table) 10/04/17 10/04/17 10/04/17 Range/Units 12:20 12:20 12:20 WBC 13.7 H (3.8-10.6) k/uL RBC 3.71 L (3.80-5.40) m/uL Hct 32.9 L (34.0-46.0) % MCHC 37.3 H (31.0-37.0) g/dL Plt Count 130 L (150-450) k/uL Neutrophils # 12.5 H (1.3-7.7) k/uL Lymphocytes # 0.5 L (1.0-4.8) k/uL APTT 21.3 L (22.0-30.0) sec Sodium 123 L (137-145) mmol/L Potassium (3.5-5.1) mmol/L Chloride 90 L (98-107) mmol/L BUN 22 H (7-17) mg/dL Creatinine (0.52-1.04) mg/dL Total Bilirubin 1.6 H (0.2-1.3) mg/dL AST 63 H (14-36) U/L Total Creatine Kinase (30-135) U/L CK-MB (CK-2) (0.0-2.4) ng/mL Urine Ketones (Negative) 10/04/17 10/04/17 10/05/17 Range/Units 12:20 12:52 06:34 WBC (3.8-10.6) k/uL RBC 3.78 L (3.80-5.40) m/uL Hct (34.0-46.0) % MCHC (31.0-37.0) g/dL Plt Count (150-450) k/uL Neutrophils # (1.3-7.7) k/uL Lymphocytes # (1.0-4.8) k/uL APTT (22.0-30.0) sec Sodium (137-145) mmol/L Potassium (3.5-5.1) mmol/L Chloride (98-107) mmol/L BUN (7-17) mg/dL Creatinine (0.52-1.04) mg/dL Total Bilirubin (0.2-1.3) mg/dL AST (14-36) U/L Total Creatine Kinase 173 H (30-135) U/L CK-MB (CK-2) 7.4 H* (0.0-2.4) ng/mL Urine Ketones Trace H (Negative) 10/05/17 Range/Units 06:34 WBC (3.8-10.6) k/uL RBC (3.80-5.40) m/uL Hct (34.0-46.0) % MCHC (31.0-37.0) g/dL Plt Count (150-450) k/uL Neutrophils # (1.3-7.7) k/uL Lymphocytes # (1.0-4.8) k/uL APTT (22.0-30.0) sec Sodium 131 L (137-145) mmol/L Potassium 3.3 L (3.5-5.1) mmol/L Chloride (98-107) mmol/L BUN (7-17) mg/dL Creatinine 0.48 L (0.52-1.04) mg/dL Total Bilirubin (0.2-1.3) mg/dL AST (14-36) U/L Total Creatine Kinase (30-135) U/L CK-MB (CK-2) (0.0-2.4) ng/mL Urine Ketones (Negative) H & H 10/04/17 10/05/17 Range/Units 12:20 06:34 Hgb 12.3 12.2 (11.4-16.0) gm/dL Hct 32.9 L 34.2 (34.0-46.0) % Coagulation 10/04/17 Range/Units 12:20 INR 1.1 (<1.2) Result Diagrams: 10/05/17 06:34 10/05/17 06:34 Assessment and Plan (1) Compression fracture Current Visit: Yes Status: Acute Code(s): SBD3937 - SNOMED Code(s): 979046688 (2) Fall Current Visit: Yes Status: Acute Code(s): W19.XXXA - UNSPECIFIED FALL, INITIAL ENCOUNTER SNOMED Code(s): 5605805 (3) Pubic ramus fracture Current Visit: Yes Status: Acute Code(s): S32.599A - OTH FRACTURE OF UNSP PUBIS, INIT ENCNTR FOR CLOSED FRACTURE SNOMED Code(s): 69680176 (4) Mechanical back pain Current Visit: No Status: Acute Code(s): M54.9 - DORSALGIA, UNSPECIFIED SNOMED Code(s): 559328144 Plan: 1. Patient is to use a walker at all times. 2. Weightbearing as tolerated. 3. Continue pain control. 4. No surgical intervention planned at this time. We will continue to follow the patient closely.
[2017-10-05] MEDS: KETOROLAC 30 MG/ML 1 ML VIAL IVP PRN ×2 (12:48→19:18)
[2017-10-05] MEDS ORDERED: POTASSIUM CHLORIDE ER 20 MEQ TAB.ER PO STA (13:15)
[2017-10-05] MEDS ORDERED: LACTULOSE 20 GM/30 ML CUP PO ONE (13:18)
--- NOTE | 2017-10-05 14:30 | XR ---
EXAMINATION TYPE: XR chest 1V DATE OF EXAM: 10/05/2017 HISTORY: SOB. REFERENCE: Previous study dated 09/25/2017. FINDINGS: The heart is not enlarged. There is a large hiatal hernia present behind the heart. There i s unfolding of the thoracic aorta. The lungs appear clear. Pleural spaces are clear. IMPRESSION: VERY LARGE HIATAL HERNIA BEHIND THE HEART.
--- NOTE | 2017-10-05 15:01 | P.PN ---
Subjective 87-year-old admitted for pubic have a fracture and the compression fracture T12 vertebrae. PT and OT was consulted patient is still complaining of pain in the back still complaining of severe constipation lactulose will be started patient was having some episodes of anxiety patient was having discomfort secondary to frequent urination because of which IV fluids were discontinued sodium did improve cognitive: Hydrocodone thiazide repeat basic metabolic profile tomorrow. Try to avoid of back barbiturates or benzodiazepines along with opiates but if she continues to have significant anxiety will use a low-dose of Xanax Objective - Vital Signs Vital signs: Vital Signs Temp 98.4 F 10/05/17 07:45 Pulse 70 10/05/17 07:45 Resp 16 10/05/17 07:45 BP 166/74 10/05/17 07:45 Pulse Ox 96 10/05/17 07:45 Intake & Output 10/04/17 10/05/17 10/05/17 18:59 06:59 18:59 Intake Total 812.5 Balance 812.5 Weight 49.895 kg Intake: Intake, IV Titration 512.5 Amount Sodium Chloride 0.9% 1, 512.5 000 ml @ 75 mls/hr IV . [id number] SOLE Rx#:[id number] Oral 300 Other: Voiding Method Bedpan Bedpan Bedpan Incontinent Incontinent Incontinent # Voids 3 - Exam PHYSICAL EXAMINATION: GENERAL: The patient is alert and oriented x3, not in any acute distress. Well developed, well nourished. HEENT: Pupils are round and equally reacting to light. EOMI. No scleral icterus. No conjunctival pallor. Normocephalic, atraumatic. No pharyngeal erythema. No thyromegaly. CARDIOVASCULAR: S1 and S2 present. No murmurs, rubs, or gallops. PULMONARY: Chest is clear to auscultation, no wheezing or crackles. ABDOMEN: Soft, nontender, nondistended, bowel sounds MUSCULOSKELETAL: No joint swelling or deformity. EXTREMITIES: No cyanosis, clubbing, or pedal edema. NEUROLOGICAL: Gross neurological examination did not reveal any focal deficits. SKIN: No rashes. - Labs CBC & Chem 7: 10/05/17 06:34 10/05/17 06:34 Labs: Abnormal Lab Results - Last 24 Hours (Table) 10/05/17 10/05/17 Range/Units 06:34 06:34 RBC 3.78 L (3.80-5.40) m/uL Sodium 131 L (137-145) mmol/L Potassium 3.3 L (3.5-5.1) mmol/L Creatinine 0.48 L (0.52-1.04) mg/dL Assessment and Plan Plan: -Fall and compression fracture PT or OT will evaluate the patient. Orthopedic surgery evaluated the patient but I do not believe there will be any surgical intervention at this point of time for pubic ramus fracture or compression fracture. -Constipation Will use MiraLAX and senna. Patient is not on opiates at at this time. Patient is presently on Toradol and Tylenol for pain. Patient is still constipated quite a bit will add lactulose once - hyponatremia probably secondary to hydrochlorothiazide, hyponatremia improved repeat basic metabolic profile tomorrow -Hypertension elevated blood pressures are secondary to pain patient was started back on losartan -Patient will need GI prophylaxis because of nonsteroidal anti-inflammatory medications Patient will also require pharmacologic DVT prophylaxis which will do the subcutaneous heparin twice a day. -Hyperlipidemia continue with statin
[2017-10-06] MEDS: KETOROLAC 30 MG/ML 1 ML VIAL IVP PRN ×5 (00:14→23:09)
[2017-10-06] MEDS: HEPARIN SODIUM,PORCINE 5,000 UNIT/ML 1 ML VIAL SQ SCH (06:48)
[2017-10-06] MEDS: FAMOTIDINE 20 MG TAB PO SCH ×2 (07:57→19:45)
[2017-10-06] MEDS: LOSARTAN 50 MG TAB PO SCH (07:57)
--- NOTE | 2017-10-06 08:25 | P.PN ---
Progress Note - Text Progress Note Date: 10/06/17 Patient is a very pleasant 87-year-old female who is seen and examined at the bedside for further evaluation for an acute T11 compression fracture status post fall. Dr. Kristopher Neely is also in the room and patient is discussed with him. Patient was admitted on 10/04/2017 after increased back pain and constipation. She sustained a fall approximately last Friday. Medicine was attempting to control her pain in the outpatient setting but were unable to do so. Upon presentation emergency department, she is found to have acute T11 compression fracture deformity and possibly nondisplaced right inferior pubic rami fracture. Patient is being treated for severe constipation as well. She does continue to have significant back pain at the T11 fracture site. She is not complaining of any pelvic pain or hip pain. She has not been out of bed since her admittance. Her pain is controlled while resting in bed and is exacerbated with movements of her spine. He denies any specific lower extremity weakness or radiculopathy bilaterally. Physical exam: Patient is awake, alert, and oriented 3 Vital signs stable Good chest excursion with deep inspiration and expiration Abdomen soft nontender Examination of lumbar spine reveals skin is intact with no abrasions, lacerations, or bruises; no erythema, purulence or signs of infection Pain with palpation along the midline of the lower thoracic spine No significant pain with palpation of the lumbar spine Dorsiflexion, plantarflexion, and extensor hallucis longus positive sustained bilaterally Lower extremity strength 5/5 bilaterally Patellar reflex 2+ bilaterally and Achilles reflexes 1+ bilaterally No lower extremity hyperreflexia bilaterally Straight leg test negative bilateral lower extremities No signs or symptoms of DVT; no calf pain No pain with internal and external rotation of the hips bilaterally Neurovascularly intact Pertinent studies: CT the abdomen and pelvis: T11 wedge compression fracture deformity at approximately 25-50% height loss; suspected nondisplaced inferior pubic rami fracture on the right of indeterminate age; L2-3 retrolisthesis; L4-5 and L5-S1 spondylolisthesis; multilevel spondylosis Assessment: Acute T11 wedge compression fracture deformity at approximately 25-50% height loss Suspected nondisplaced inferior pubic rami fracture on the right of indeterminate age Status post fall Thoracic back pain Lumbar spondylolisthesis Constipation Plan: 1. After reviewing of imaging, physical examination the patient, and further discussion with the patient, we'll plan to continue with conservative treatment at this time. Patient is experiencing significant pain in her thoracic spine with evidence of an acute T11 compression fracture deformity. We'll plan to obtain a Spinomed TLSO brace. A prescription for this brace has been written. Once this brace has been delivered and fitted appropriately, patient should wear this brace while sitting upright at greater than 45, during ambulation, during increase activities, and while working with physical therapy. Brace does not having worn while lying in bed or while bathing. Patient should avoid excessive bending, twisting, lifting; no lifting greater than 10 pounds. Patient should refrain from working with physical therapy until brace has been delivered and fitted appropriately. Once brace has been delivered and fitted properly, patient is clear for discharge from orthopedic spine standpoint. Patient may weight-bear as tolerated. We will not currently plan for specific treatment of her suspected nondisplaced inferior pubic rami fracture on the right as the patient is not experiencing any significant pelvic pain or discomfort. 2. Medicine to continue following the patient closely 3. Continue pain control with medications as prescribed 4. Per medicine, patient complained remain in hospital at least one more night with planned discharge to rehabilitation facility prior to returning home 5. Following discharge, patient may follow-up with Lucio Morrissey PA-C or Dr. Nazario Jose at [facility] in approximately 2 weeks for further evaluation. Patient is currently scheduled for evaluation on 2017 and this appointment should be moved out to approximately 2 weeks from today 6. Patient will be discussed in detail with Dr. Nazario Jose
[2017-10-06 09:03] LABS: Anion Gap 9 mmol/L; Blood Urea Nitrogen 9 mg/dL (7-17); Calcium 8.8 mg/dL (8.4-10.2); Carbon Dioxide 25 mmol/L (22-30); Chloride 97 mmol/L (98-107); Glucose 174 mg/dL (74-99); Potassium 4.2 mmol/L (3.5-5.1); Sodium 131 mmol/L (137-145)
[2017-10-06] MEDS: METOPROLOL SUCCINATE (ER) 25 MG TAB.ER.24H PO SCH ×2 (09:11→19:45)
[2017-10-06] MEDS: ASPIRIN 81 MG PO SCH (09:11)
[2017-10-06] MEDS: MULTIVITAMINS, THERA 1 EACH TAB PO SCH (09:11)
[2017-10-06] MEDS: ATORVASTATIN 20 MG TAB PO SCH (09:17)
--- NOTE | 2017-10-06 09:21 | P.PN ---
Subjective Progress Note Date: 10/06/17 Patient was admitted on 10/04/2017 with a chief complaint of back pain and constipation. Dr. Neely was attempting to control her pain on an outpatient basis. The patient was taking Tylenol #3 at home and the family notified Dr. Neely office that they wanted to try something else for pain relief. The patient was ordered Tramadol. She subsequently experienced a fall at home while walking to the bathroom. The patient states she lives alone. She reports wearing a "life alert" type of device and notified EMS. She was transferred to the hospital. She was found to be hyponatremic upon admission with a sodium of 123. Her HCTZ has been held. Repeat is 131 yesterday. Sodium level this morning is pending. CT abdomen of pelvis: Large amount of retained fecal debris is present throughout the distribution of the colon. T11 anterior wedge compression deformity with loss of height of 25-50%. Suspected nondisplaced inferior pubic ramus fracture on the right of indeterminate age. Patient seen and examined at the bedside on rounds with Dr. Neely. Patient is sitting up in bed. Patient states her pain is tolerable at this time. She states she has not been out of bed yet. Nursing reports + bowel movement yesterday. No surgical intervention is recommended per orthopedics. Patient is to get a TLSO brace per orthopedics. Objective - Vital Signs Vital signs: Vital Signs Temp 97.8 F 10/06/17 07:47 Pulse 85 10/06/17 07:47 Resp 16 10/06/17 07:48 BP 154/80 10/06/17 07:47 Pulse Ox 96 10/06/17 07:47 Intake & Output 10/05/17 10/06/17 10/06/17 18:59 06:59 18:59 Intake Total 500 800 Balance 500 800 Intake: IV 210 0.9 KVO 210 Oral 500 590 Other: Voiding Method Bedpan Bedpan Bedpan Incontinent # Voids 2 3 # Bowel Movements 1 - Exam GENERAL: This is a 87-year-old female in no apparent distress at the time of examination. Pleasant and cooperative. HEENT: Head is atraumatic, normocephalic. Pupils are equal, round, and reactive to light. Sclerae anicteric. Conjunctivae are clear. Mucus membranes of the mouth are moist. Neck is supple. RESPIRATORY: Clear to ausculation. No wheezes, rales, or rhonchi. No use of accessory muscles. Patient maintaining oxygen saturation greater than 92%. No chest wall tenderness is noted on palpation or with deep breathing. CARDIOVASCULAR: Regular rate and rhythm. S1 and S2 noted. No systolic or diastolic murmur auscultated. No JVD noted. No S3 or S4 noted. GASTROINTESTINAL: No distention noted. Abdomen soft and round. Normal active bowel sounds auscultated x 4 quadrants. No pain or tenderness noted upon palpation. INTEGUMENTARY: No cyanosis. No jaundice. No rashes noted. No cellulitis noted. EXTREMITIES: 2+ peripheral pulses. No evidence of peripheral edema. No calf tenderness noted. NEUROLOGIC: Cranial nerves II-XII intact. PSYCHIATRIC: Awake, alert, and oriented X 3. Appropriate affect. Intact judgement and insight. - Labs CBC & Chem 7: 10/05/17 06:34 10/05/17 06:34 Assessment and Plan Plan: ASSESSMENT: Acute T11 wedge compression fracture deformity at approximately 25-50% height loss, S/P fall from standing Suspected nondisplaced inferior pubic rami fracture on the right of indeterminate age Thoracic back pain Lumbar spondylolisthesis Constipation, since resolved Hyponatremia, likely secondary to HCTZ, improving Essential hypertension Hyperlipidemia Depression, unspecified PLAN: Orthopedics on consult. Appreciate recommendations and input Patient to receive TLSO brace Continue Toradol and Tylenol for pain Continue to hold HCTZ due to hyponatremia Home meds as appropriate Monitor labs GI prophylaxis: Pepcid 20mg PO BID DVT prophylaxis: TEDs to bilateral LE Monitor vital signs and address as appropriate PT/OT Activity as tolerated Discharge planning: ECF at the time of discharge. Patient requesting [place] in [facility] as it is closer to one of her children Further recommendations pending patient's course Nurse practitioner note has been reviewed by physician. Signing provider agrees with the documented findings, assessment, and plan of care.
[2017-10-06] MEDS ORDERED: MORPHINE SULFATE 4MG/4ML SYRG IVP SCH (13:00)
[2017-10-06] MEDS ORDERED: MORPHINE SULFATE 4MG/4ML SYRG IVP PRN (13:02)
[2017-10-07] MEDS: KETOROLAC 30 MG/ML 1 ML VIAL IVP PRN ×4 (05:23→22:26)
[2017-10-07] MEDS: ASPIRIN 81 MG PO SCH (07:50)
[2017-10-07] MEDS: ATORVASTATIN 20 MG TAB PO SCH (07:50)
[2017-10-07] MEDS: METOPROLOL SUCCINATE (ER) 25 MG TAB.ER.24H PO SCH ×2 (07:50→19:36)
[2017-10-07] MEDS: LOSARTAN 50 MG TAB PO SCH ×2 (07:50→19:36)
[2017-10-07] MEDS: MULTIVITAMINS, THERA 1 EACH TAB PO SCH (07:50)
[2017-10-07] MEDS: FAMOTIDINE 20 MG TAB PO SCH ×2 (07:50→19:36)
[2017-10-07] MEDS ORDERED: MORPHINE ORAL SOLN 10 MG/5 ML CUP PO PRN (08:54)
[2017-10-07 08:55] LABS: Anion Gap 12 mmol/L; Blood Urea Nitrogen 10 mg/dL (7-17); Calcium 8.8 mg/dL (8.4-10.2); Carbon Dioxide 23 mmol/L (22-30); Chloride 95 mmol/L (98-107); Glucose 197 mg/dL (74-99); Potassium 3.9 mmol/L (3.5-5.1); Sodium 130 mmol/L (137-145)
--- NOTE | 2017-10-07 11:02 | P.PN ---
Subjective Progress Note Date: 10/07/17 Patient was admitted on 10/04/2017 with a chief complaint of back pain and constipation. Dr. Neely was attempting to control her pain on an outpatient basis. The patient was taking Tylenol #3 at home and the family notified Dr. Neely office that they wanted to try something else for pain relief. The patient was ordered Tramadol. She subsequently experienced a fall at home while walking to the bathroom. The patient states she lives alone. She reports wearing a "life alert" type of device and notified EMS. She was transferred to the hospital. She was found to be hyponatremic upon admission with a sodium of 123. Her HCTZ has been held. Repeat is 131 yesterday. Sodium level this morning is pending. CT abdomen of pelvis: Large amount of retained fecal debris is present throughout the distribution of the colon. T11 anterior wedge compression deformity with loss of height of 25-50%. Suspected nondisplaced inferior pubic ramus fracture on the right of indeterminate age. 10/06/2017 Patient seen and examined at the bedside on rounds with Dr. Neely. Patient is sitting up in bed. Patient states her pain is tolerable at this time. She states she has not been out of bed yet. Nursing reports + bowel movement yesterday. No surgical intervention is recommended per orthopedics. Patient is to get a TLSO brace per orthopedics. 10/07/2017 Patient seen and examined at the bedside. Patient states her pain is tolerable at this time.Sodium this morning is 130. Blood pressure this morning is 162/97. Patient had a TLSO brace fitted yesterday. Patient complains it is uncomfortable. PT/OT consulted. Patient may be discharged this afternoon to [facility] if she has insurance approval. Objective - Vital Signs Vital signs: Vital Signs Temp 97.1 F L 10/07/17 07:42 Pulse 55 L 10/07/17 07:42 Resp 17 10/07/17 07:43 BP 162/97 10/07/17 07:42 Pulse Ox 96 10/07/17 07:42 Intake & Output 10/06/17 10/07/17 10/07/17 18:59 06:59 18:59 Intake Total 700 200 Balance 700 200 Intake: Oral 700 200 Other: Voiding Method Bedpan Bedside Commode Bedpan # Voids 2 1 1 # Bowel Movements 1 - Exam GENERAL: This is a 87-year-old female in no apparent distress at the time of examination. Pleasant and cooperative. HEENT: Head is atraumatic, normocephalic. Pupils are equal, round, and reactive to light. Sclerae anicteric. Conjunctivae are clear. Mucus membranes of the mouth are moist. Neck is supple. RESPIRATORY: Clear to ausculation. No wheezes, rales, or rhonchi. No use of accessory muscles. Patient maintaining oxygen saturation greater than 92%. No chest wall tenderness is noted on palpation or with deep breathing. CARDIOVASCULAR: Regular rate and rhythm. S1 and S2 noted. No systolic or diastolic murmur auscultated. No JVD noted. No S3 or S4 noted. GASTROINTESTINAL: No distention noted. Abdomen soft and round. Normal active bowel sounds auscultated x 4 quadrants. No pain or tenderness noted upon palpation. INTEGUMENTARY: No cyanosis. No jaundice. No rashes noted. No cellulitis noted. EXTREMITIES: 2+ peripheral pulses. No evidence of peripheral edema. No calf tenderness noted. NEUROLOGIC: Cranial nerves II-XII intact. PSYCHIATRIC: Awake, alert, and oriented X 3. Appropriate affect. Intact judgement and insight. - Labs CBC & Chem 7: 10/05/17 06:34 10/07/17 08:22 Labs: Abnormal Lab Results - Last 24 Hours (Table) 10/07/17 Range/Units 08:22 Sodium 130 L (137-145) mmol/L Chloride 95 L (98-107) mmol/L Creatinine 0.50 L (0.52-1.04) mg/dL Glucose 197 H (74-99) mg/dL Assessment and Plan Plan: ASSESSMENT: Acute T11 wedge compression fracture deformity at approximately 25-50% height loss, S/P fall from standing Suspected nondisplaced inferior pubic rami fracture on the right of indeterminate age Thoracic back pain Lumbar spondylolisthesis Constipation, since resolved Hyponatremia, likely secondary to HCTZ, improving Essential hypertension Hyperlipidemia Depression, unspecified PLAN: Orthopedics on consult. Appreciate recommendations and input Continue Toradol and Tylenol for pain Continue to hold HCTZ due to hyponatremia Increase Cozaar to BID due to elevated BP Home meds as appropriate Monitor labs GI prophylaxis: Pepcid 20mg PO BID DVT prophylaxis: TEDs to bilateral LE Monitor vital signs and address as appropriate PT/OT Activity as tolerated Discharge planning: ECF at the time of discharge. Patient requesting [place] in [facility] as it is closer to one of her children Patient may be discharged this afternoon Further recommendations pending patient's course Nurse practitioner note has been reviewed by physician. Signing provider agrees with the documented findings, assessment, and plan of care.
[2017-10-08] MEDS: KETOROLAC 30 MG/ML 1 ML VIAL IVP PRN ×3 (07:26→19:30)
[2017-10-08] MEDS: ASPIRIN 81 MG PO SCH (08:35)
[2017-10-08] MEDS: LOSARTAN 50 MG TAB PO SCH ×2 (08:35→19:30)
[2017-10-08] MEDS: FAMOTIDINE 20 MG TAB PO SCH ×2 (08:36→19:30)
[2017-10-08] MEDS: MULTIVITAMINS, THERA 1 EACH TAB PO SCH (08:36)
[2017-10-08] MEDS: ATORVASTATIN 20 MG TAB PO SCH (08:36)
[2017-10-08] MEDS: METOPROLOL SUCCINATE (ER) 25 MG TAB.ER.24H PO SCH ×2 (08:36→19:30)
--- NOTE | 2017-10-08 12:00 | P.DS ---
Providers Date of admission: 10/04/17 14:51 Expected date of discharge: 10/08/17 Attending physician: Kristopher Neely Consults: 10/04/17 14:58 Consult Physician Urgent Consulting Provider: Khalif Flowers Consult Reason/Comments: Pelvic rami fracture, vertebral compression fracture Do you want consulting provider notified?: Yes Primary care physician: Kristopher Neely [facility] Course: Patient was admitted on 10/04/2017 with a chief complaint of back pain and constipation. Dr. Neely was attempting to control her pain on an outpatient basis. The patient was taking Tylenol #3 at home and the family notified Dr. Neely office that they wanted to try something else for pain relief. The patient was ordered Tramadol. She subsequently experienced a fall at home while walking to the bathroom. The patient states she lives alone. She reports wearing a "life alert" type of device and notified EMS. She was transferred to the hospital. She was found to be hyponatremic upon admission with a sodium of 123. Her HCTZ has been held. Lastest sodium is 130. CT abdomen of pelvis: Large amount of retained fecal debris is present throughout the distribution of the colon. T11 anterior wedge compression deformity with loss of height of 25-50%. Suspected nondisplaced inferior pubic ramus fracture on the right of indeterminate age. Patient has since had multiple bowel movements and constipation has resolved. Orthopedics evaluated patient. No surgical intervention. TLSo brace ordered for the patient per ortho. Patient remains weak and requires rehabilitation at the time of discharge. Physical therapy and occupational therapy were consulted to evaluate patient. Physical therapy states that the patient is unsafe to return home and recommends ECF at the time discharge. Patient requesting [place] in [place]. Patient is deemed stable for discharge to ECF pending insurance authorization. Her HCTZ will be held at the time of discharge due to hyponatremia. Repeat sodium in one week. DISCHARGE DIAGNOSIS: Acute T11 wedge compression fracture deformity at approximately 25-50% height loss, S/P fall from standing Suspected nondisplaced inferior pubic rami fracture on the right of indeterminate age Thoracic back pain Lumbar spondylolisthesis Constipation, since resolved Hyponatremia, likely secondary to HCTZ, improving Essential hypertension Hyperlipidemia Depression, unspecified Nurse practitioner note has been reviewed by physician. Signing provider agrees with the documented findings, assessment, and plan of care. . Patient Condition at Discharge: Stable Plan - Discharge Summary Discharge Rx Participant: Yes New Discharge Prescriptions: New Acetaminophen [Tylenol] 650 mg PO Q6H PRN #30 tab PRN Reason: Pain Bisacodyl [Dulcolax] 5 mg PO DAILY PRN tablet.dr BECKER Reason: Constipation Famotidine [Pepcid] 20 mg PO BID tab Losartan [Cozaar] 50 mg PO BID tab Polyethylene Glycol 3350 [Miralax] 17 gm PO DAILY PRN powd.pack PRN Reason: Constipation Sennosides [Senokot] 8.6 mg PO BID PRN tab PRN Reason: Constipation Continue Simvastatin [Zocor] 40 mg PO DAILY Aspirin 81 mg PO DAILY Multivitamins, Thera [Multivitamin (formulary)] 1 tab PO DAILY Metoprolol Succinate [Toprol XL] 25 mg PO BID traMADol HCl [Ultram] 50 mg PO TID PRN PRN Reason: Pain Discontinued Losartan-Hctz 50-12.5 mg [Hyzaar 50-12.5] 1 tab PO DAILY Cyclobenzaprine [Flexeril] 5 mg PO DAILY #10 tab Naproxen Sodium [Aleve] 220 mg PO BID PRN PRN Reason: Pain Discharge Medication List Aspirin 81 mg PO DAILY 08/22/15 [History] Simvastatin [Zocor] 40 mg PO DAILY 08/22/15 [History] Metoprolol Succinate [Toprol XL] 25 mg PO BID 09/26/15 [History] Multivitamins, Thera [Multivitamin (formulary)] 1 tab PO DAILY 09/26/15 [History ] traMADol HCl [Ultram] 50 mg PO TID PRN 10/04/17 [History] Acetaminophen [Tylenol] 650 mg PO Q6H PRN #30 tab 10/07/17 [Rx] Bisacodyl [Dulcolax] 5 mg PO DAILY PRN tablet. 10/07/17 [Rx] Famotidine [Pepcid] 20 mg PO BID tab 10/07/17 [Rx] Losartan [Cozaar] 50 mg PO BID tab 10/07/17 [Rx] Polyethylene Glycol 3350 [Miralax] 17 gm PO DAILY PRN powd.pack 10/07/17 [Rx] Sennosides [Senokot] 8.6 mg PO BID PRN tab 10/07/17 [Rx] Follow up Appointment(s)/Referral(s): Kristopher Neely DO [Primary Care Provider] - 1 Week (1 week after DC from [facility]) Lucio Morrissey PAC [PHYSICIAN BUSINESS SERVICES OFFICER] - 2 Weeks (Patient may follow-up with Lucio Morrissey PA-C or Dr. Nazario Jose at [facility] in 2-3 weeks following discharge. ) Ambulatory/Diagnostic Orders: Basic Metabolic Panel [LAB.AMB] Time Frame: 1 Week, Location: Determined By Patient Activity/Diet/Wound Care/Special Instructions: 1. Patient may wear Spinomed TLSO brace for comfort and support while sitting upright at greater than 45, while working with therapy, and while ambulating; patient does not have to wear the brace while lying in bed or bathing 2. Patient should avoid excessive bending, twisting, and lifting; no lifting greater than 10 pounds Heart healthy diet 1200cc fluid restriction until sodium returns to normal activity as tolerated Discharge Disposition: TRANSFER TO SNF/ECF
[2017-10-09] MEDS: KETOROLAC 30 MG/ML 1 ML VIAL IVP PRN (01:24)
[2017-10-09 01:46] VITALS: RESP 15; TEMP 97.7
[2017-10-09] MEDS ORDERED: traMADol 50 MG TAB PO SCH (09:00)
[2017-10-09] MEDS ORDERED: traMADol 50 MG TAB PO PRN (09:08)
[2017-10-09] MEDS: FAMOTIDINE 20 MG TAB PO SCH (09:38)
[2017-10-09] MEDS: METOPROLOL SUCCINATE (ER) 25 MG TAB.ER.24H PO SCH (09:39)
[2017-10-09] MEDS: LOSARTAN 50 MG TAB PO SCH (09:39)
[2017-10-09] MEDS: ATORVASTATIN 20 MG TAB PO SCH (09:40)
[2017-10-09] MEDS: MULTIVITAMINS, THERA 1 EACH TAB PO SCH (09:40)
[2017-10-09] MEDS: ASPIRIN 81 MG PO SCH (09:41)
[2017-10-09 10:20] VITALS: BP 147/76; PULSE 75
== END 2017-10-09 13:45 | DRG 552 ==
LOC: EC 11:32 → 3SUR 14:51
PROVIDERS: ADMIT Family Medicine; ATTEND Family Medicine
DX: S22.080A Wedge compression fracture of T11-T12 vertebra, initial encounter for closed fracture (principal); S32.591A Other specified fracture of right pubis, initial encounter for closed fracture; E87.1 Hypo-osmolality and hyponatremia; E86.0 Dehydration; E78.5 Hyperlipidemia, unspecified; F32.9 Major depressive disorder, single episode, unspecified; K21.9 Gastro-esophageal reflux disease without esophagitis; K59.00 Constipation, unspecified; I10 Essential (primary) hypertension; M43.16 Spondylolisthesis, lumbar region; T50.2X5A Adverse effect of carbonic-anhydrase inhibitors, benzothiadiazides and other diuretics, initial encounter; F41.9 Anxiety disorder, unspecified; M19.90 Unspecified osteoarthritis, unspecified site; R35.0 Frequency of micturition; K57.90 Diverticulosis of intestine, part unspecified, without perforation or abscess without bleeding; R32 Unspecified urinary incontinence; M47.9 Spondylosis, unspecified; Z79.82 Long term (current) use of aspirin; Z79.899 Other long term (current) drug therapy; Z85.828 Personal history of other malignant neoplasm of skin; Z87.442 Personal history of urinary calculi; Z96.653 Presence of artificial knee joint, bilateral; Z90.710 Acquired absence of both cervix and uterus; Z90.49 Acquired absence of other specified parts of digestive tract; Z87.01 Personal history of pneumonia (recurrent); Z88.0 Allergy status to penicillin; Z88.8 Allergy status to other drugs, medicaments and biological substances; Z86.14 Personal history of Methicillin resistant Staphylococcus aureus infection; Z82.49 Family history of ischemic heart disease and other diseases of the circulatory system; Z80.1 Family history of malignant neoplasm of trachea, bronchus and lung; W18.30XA Fall on same level, unspecified, initial encounter; Y92.009 Unspecified place in unspecified non-institutional (private) residence as the place of occurrence of the external cause
CPT/HCPCS: 36415; 71045; 71275; 74177; 80048; 80053; 81003; 82150; 82550; 82553; 83605; 83690; 85025; 85027; 85610; 85730; 93005; 96360; 99285

== ENCOUNTER 2017-11-22 18:02 | Observation (INO) | payer MEDICARE ==
--- NOTE | 2017-11-22 18:34 | ED ---
General Adult HPI - General Chief complaint: Fall Stated complaint: Fall Time Seen by Provider: 11/22/17 18:06 Source: patient, EMS, RN notes reviewed, old records reviewed Mode of arrival: EMS Limitations: no limitations - History of Present Illness Initial comments: Chief complaint and history of present illness is 89-year-old female who lives alone. The patient has been in a convalescent facility up until this past Friday after a fall. The patient does have a bowel looks in on her for greater part of the day. Between shifts she stumbled and fell. He complains of pain to her left elbow and left shoulder. Also 1 mL laceration to the left eyebrow. Denies any loss of conscious. Denies any numbness or tingling to the extremities. Denies neck pain. Alert and oriented. While in emergency room she called her son. - Related Data Home Medications Medication Instructions Recorded Confirmed Aspirin 81 mg PO DAILY 08/22/15 10/04/17 Simvastatin [Zocor] 40 mg PO DAILY 08/22/15 10/04/17 Metoprolol Succinate [Toprol XL] 25 mg PO BID 09/26/15 10/04/17 Multivitamins, Thera [Multivitamin 1 tab PO DAILY 09/26/15 10/04/17 (formulary)] traMADol HCl [Ultram] 50 mg PO TID PRN 10/04/17 10/04/17 Previous Rx's Medication Instructions Recorded Acetaminophen [Tylenol] 650 mg PO Q6H PRN #30 tab 10/07/17 Bisacodyl [Dulcolax] 5 mg PO DAILY PRN tablet. 10/07/17 Famotidine [Pepcid] 20 mg PO BID tab 10/07/17 Losartan [Cozaar] 50 mg PO BID tab 10/07/17 Polyethylene Glycol 3350 [Miralax] 17 gm PO DAILY PRN powd.pack 10/07/17 Sennosides [Senokot] 8.6 mg PO BID PRN tab 10/07/17 traMADol HCL [Ultram] 50 mg PO Q4HR PRN #60 tab 10/09/17 Allergies Allergy/AdvReac Type Severity Reaction Status Date / Time Penicillins Allergy Rash/Hives Verified 10/04/17 15:11 enoxaparin sodium AdvReac Unknown Verified 10/04/17 15:11 [From Lovenox] heparin AdvReac Unknown Verified 10/04/17 15:11 Review of Systems ROS Statement: Those systems with pertinent positive or pertinent negative responses have been documented in the HPI. Review of systems patient's denying any headache or visual acuity changes denies any neck pain. She does have 1 laceration to the lateral left eyebrow area. Teeth are intact to intact. No chest pain. No shortness of breath. She does have pain with both active and passive motion of her left elbow and left shoulder. Able to open close Ringer's of both hands rotate wrists without pain. Denies back pain denies hip pain denies lower extremity pain. Neurologically intact. All systems were reviewed. Past medical problems significant for CHF, hyperlipidemia, hypertension, osteoarthritis, pneumonia, basal cell carcinoma. Surgeries tonsils, adenoids, gallbladder, hysterectomy, bilateral total knees. Family history Dr. March ALLERGIES to penicillin, heparin and Lovenox. Nonsmoker nondrinker. ROS Other: All systems not noted in ROS Statement are negative. Past Medical History Past Medical History: Cancer, Heart Failure, Hyperlipidemia, Hypertension, Osteoarthritis (OA), Pneumonia Additional Past Medical History / Comment(s): pne x2, basal cell skin ca(face), ddd, sciatic nerce pain,diverticultis History of Any Multi-Drug Resistant Organisms: MRSA Date of last positivie culture/infection: 06/09/15 MDRO Source:: Left Breast Past Surgical History: Adenoidectomy, Cholecystectomy, Hysterectomy, Orthopedic Surgery, Tonsillectomy Additional Past Surgical History / Comment(s): lee KNEE REPLACEMENTS,lee CARPAL TUNNEL,bunionectomy lt foot has screws in place, rt foot screws removed, neuroma 's removed from 2 toes, deceated septum repair, partial hysterectomy, kidney stone, colonoscopy. Past Anesthesia/Blood Transfusion Reactions: No Reported Reaction Past Psychological History: Depression Additional Psychological History / Comment(s): pt just lost her spouse in july 2015 was 64 years gets tearfull when speaking of him, has periods of sadness but denies any thoughts of harming self. lives alone in own home was independant up till a week ago when loswer back pain got so bad had diff walking-had to use a cane. Smoking Status: Never smoker Past Alcohol Use History: Rare Past Drug Use History: None Reported - Past Family History Father Family Medical History: Congestive Heart Failure (CHF) Mother Family Medical History: Cancer Additional Family Medical History / Comment(s): lung cancer General Exam - General Exam Comments Initial Comments: General: The patient is awake and alert, patient stumbled and fell at home. 1 cm laceration to her left eyebrow. Complaining of pain to her left shoulder left elbow. Skin tear left elbow. Vital signs temperature 97.2 pulse 63 respiratory rate 18 pulse ox on percent room air blood pressure 158/79 Eye: Pupils are equal, round and reactive to light, extra-ocular movements are intact ; there is normal conjunctiva bilaterally. No signs of icterus. Ears, nose, mouth and throat: There are moist mucous membranes and no oral lesions. 1 laceration over left eyebrow. Cleaned and Steri-Stripped. Neck: The neck is supple, there is no tenderness . No complaint of neck pain.. Cardiovascular: There is a regular rate and rhythm. No murmur, rub or gallop is appreciated. Respiratory: Lungs are clear to auscultation, respirations are non-labored, breath sounds are equal. No wheezes, stridor, rales, or rhonchi. Gastrointestinal: Soft, non-distended, non-tender abdomen without masses or organomegaly noted. There is no rebound or guarding present. No CVA tenderness. Bowel sounds are unremarkable. Back: No complaint of back pain. Musculoskeletal: Skin tear left elbow cleaned and dressed. Decreased range of motion both active and passively left elbow left shoulder, neurovascular status to hands are intact. Lower extremities normal without pain or problems. X-rays pending of the left upper extremity. Neurological: No focal or lateralizing findings Skin: Chronic bruising Psychiatric: Cooperative, Limitations: no limitations Course Vital Signs 11/22/17 11/22/17 18:06 18:49 Temperature 97.2 F L Pulse Rate 63 69 Respiratory 18 16 Rate Blood Pressure 158/79 O2 Sat by Pulse 100 100 Oximetry Medical Decision Making - Medical Decision Making Medical decision making; was an 87-year-old female brought in by embolus. The patient had a fall at home. Denies slipping. Denies any loss of consciousness. Patient does have a 1 mL laceration to her left eyebrow this was cleaned and Steri-Stripped. X-ray of the left shoulder was done and reviewed by radiologist his impression is there is a mid clavicular fracture which is angulated with approximately 1 cm override. The sternal clavicular and acromioclavicular joints are congruent, as is the glenohumeral joint. Prominent advanced left shoulder osteoarthritis changes are noted. No other findings. Impression mid clavicular fracture. As read by Dr. Ebony Santos. X-ray of the left elbow was done and reviewed radiologist his findings are there is no fracture or malalignment. Soft tissues are unremarkable. Impression; no acute process. As read by Dr. Ebony Santos. CT the brain and cervical spine was done and reviewed by radiologist; his findings are there is no fracture. Generalized osteopenia is noted. There is no acute intracranial hemorrhage, mass effect, or midline shift identified. The ventricles are enlarged and is more so than sulcal pattern and basal cisterns. This raises the possibility of normal pressure hydrocephalus, but only of NPH is suspected clinically. There is, the CT finding is a nonspecific finding and is not too dissimilar from prior study. The globes are intact and the visualized sinuses are clear. Cervical spine as visualized in its entirety from C1 through the upper thoracic levels and demonstrates satisfactory alignment without evidence of acute fracture dislocation. There is generalized osteopenia. Prevertebral soft tissue appears within normal limits. Moderate to marked multilevel cervical spondylosis as are noted. The C1-C2 articulation is unremarkable. Impression. There is no acute fracture or dislocation evident in the cervical spine. No acute intracranial hemorrhage, mass effect, or midline shift seen. Panventriculomegaly pattern which can correlate with clinical diagnosis of normal pressure hydrocephalus. As read by Dr. Ebony Santos Clinically at this time the patient's not demonstrating any NPH type symptomatology. Patient had a sling applied to her left arm because of the left clavicular fracture. The patient be admitted to the hospital. With consultation from on-call orthopedics, Dr. Jose. I spoke to Darrell hernandez, on-call for Dr. Neely. Disposition Clinical Impression: Poor balance, Fracture of clavicle, left, closed Disposition: ADMITTED IP TO THIS [facility] Condition: Fair Is patient prescribed a controlled substance at d/c from ED?: No Referrals: Kristopher Neely DO [Primary Care Provider] - 1-2 days
--- NOTE | 2017-11-22 19:21 | XR ---
PROCEDURE: XR shoulder complete LT 3 views DATE AND TIME: 11/22/2017 6:42 PM REFERRING PHYSICIAN: Aurelio Cardona MD CLINICAL INDICATION: PHH, Pain after fall TECHNIQUE: Department protocol. COMPARISON: None FINDINGS: There is a midclavicular fracture which is angulated with approximately 1 cm override. The sternoclavicular and acromioclavicular joints are congruent, as is the glenohumeral joint. Prominent advanced left shoulder osteoarthritis changes are noted. No other findings. IMPRESSION: MIDCLAVICULAR FRACTURE.
--- NOTE | 2017-11-22 19:30 | XR ---
PROCEDURE: XR elbow complete LT 3 views DATE AND TIME: 11/22/2017 6:42 PM REFERRING PHYSICIAN: Aurelio Cardona MD CLINICAL INDICATION: PHH, Pain after fall TECHNIQUE: Department protocol. COMPARISON: None FINDINGS: There is no fracture or malalignment. The soft tissues are unremarkable. IMPRESSION: NO ACUTE PROCESS.
--- NOTE | 2017-11-22 19:57 | CT ---
EXAMINATION TYPE: CT brain destinee wo con DATE OF EXAM: 11/22/2017 COMPARISON: 08/22/2015 HISTORY: Fall, left orbit abrasion and hematoma. CT DLP: 1228.8 mGycm Automated exposure control for dose reduction was used. TECHNIQUE: CT scan of the head and cervical spine are performed without contrast. FINDINGS: There is no fracture. Generalized osteopenia is noted. There is no acute intracranial hem orrhage, mass effect, or midline shift identified. The ventricles are enlarged and is more so than t he sulcal pattern and basal cisterns. This raises the possibility of normal pressure hydrocephalus, b ut only if NPH is suspected clinically. There is, the CT finding is a nonspecific finding and is not too dissimilar from the prior study. The globes are intact and the visualized sinuses are clear. Cervical spine is visualized in its entirety from C1 through upper thoracic levels and demonstrates s atisfactory alignment without evidence of acute fracture or dislocation. There is generalized osteope julia. Prevertebral soft tissue appears within normal limits. Moderate and marked multilevel cervical spondylosis as are noted. The C1-C2 articulation is unremarkable. IMPRESSION: 1. There is no acute fracture or dislocation evident in the cervical spine. 2. No acute intracranial hemorrhage, mass effect, or midline shift is seen. 3. Panventriculomegaly pattern which can correlate with a clinical diagnosis of normal pressure hydro cephalus.
[2017-11-22] MEDS ORDERED: NALOXONE 0.4 MG/ML 1 ML VIAL IV PRN (20:07)
[2017-11-22] MEDS ORDERED: BISACODYL 5 MG TABLET.DR PO PRN (20:11)
[2017-11-22] MEDS ORDERED: POLYETHYLENE GLYCOL 3350 17 GM POWD.PACK PO PRN (20:11)
[2017-11-22] MEDS ORDERED: traMADol 50 MG TAB PO PRN (20:11)
[2017-11-22] MEDS ORDERED: SENNOSIDES 8.6 MG TAB PO PRN (20:11)
[2017-11-22] MEDS: SODIUM CHLORIDE 0.9% 1,000 ML IV SCH (20:51)
[2017-11-22] MEDS: FAMOTIDINE 20 MG TAB PO SCH (21:50)
[2017-11-22] MEDS: METOPROLOL SUCCINATE (ER) 25 MG TAB.ER.24H PO SCH (21:51)
[2017-11-22] MEDS: LOSARTAN 50 MG TAB PO SCH (21:51)
[2017-11-22 23:07] VITALS: BMI 20.6
[2017-11-23] MEDS: LOSARTAN 50 MG TAB PO SCH ×2 (06:56→20:58)
[2017-11-23] MEDS: ASPIRIN 81 MG PO SCH (08:58)
[2017-11-23] MEDS: FAMOTIDINE 20 MG TAB PO SCH ×2 (08:58→20:58)
[2017-11-23] MEDS: METOPROLOL SUCCINATE (ER) 25 MG TAB.ER.24H PO SCH ×2 (08:58→20:58)
[2017-11-23] MEDS: ATORVASTATIN 20 MG TAB PO SCH (08:58)
[2017-11-23 10:59] LABS: HCT 36.9 % (34.0-46.0); HGB 12.6 gm/dL (11.4-16.0); MCH 32.6 pg (25.0-35.0); MCHC 34.3 g/dL (31.0-37.0); Mean Platelet Volume 7.3; Platelet Count 304 k/uL (150-450); RBC 3.88 m/uL (3.80-5.40); RDW 13.1 % (11.5-15.5); WBC 7.9 k/uL (3.8-10.6)
[2017-11-23 11:10] LABS: Anion Gap 10 mmol/L; Blood Urea Nitrogen 14 mg/dL (7-17); Carbon Dioxide 27 mmol/L (22-30); Chloride 98 mmol/L (98-107); Glucose 114 mg/dL (74-99); Potassium 3.5 mmol/L (3.5-5.1); Sodium 135 mmol/L (137-145)
--- NOTE | 2017-11-23 11:24 | P.CNOR ---
History of Present Illness - [facility] Consult date: 11/23/17 Consult reason: fracture History of present illness: Patient is a very pleasant 87-year-old female who lives at home alone. Apparently she had a fall at home 2 yesterday. She had been living at a facility up until last Friday now lives by herself and has home care seeing her. When she fell she had new pain at her left shoulder. She also hit her head and sustained a laceration over her left eyebrow. She denies loss consciousness. She denies any significant problems with her left shoulder in the past. She denies numbness tingling in her extremity. She denies any new weakness. Review of Systems She denies loss of consciousness denies prior problems with her left upper extremity. She normally lives alone and uses a walker for ambulation. She has help to come see her at home with [facility] as well as therapy. She denies numbness tingling in her upper extremity is. She denies any troubles the bowel bladder function. Past Medical History Past Medical History: Cancer, Heart Failure, Hyperlipidemia, Hypertension, Osteoarthritis (OA), Pneumonia Additional Past Medical History / Comment(s): pne x2, basal cell skin ca(face), ddd, sciatic nerce pain,diverticultis History of Any Multi-Drug Resistant Organisms: None Reported, MRSA Year Discovered:: 06/09/15 MDRO Source:: Left Breast Past Surgical History: Adenoidectomy, Cholecystectomy, Hysterectomy, Orthopedic Surgery, Tonsillectomy Additional Past Surgical History / Comment(s): lee KNEE REPLACEMENTS,lee CARPAL TUNNEL,bunionectomy lt foot has screws in place, rt foot screws removed, neuroma 's removed from 2 toes, deceated septum repair, partial hysterectomy, kidney stone, colonoscopy. Past Anesthesia/Blood Transfusion Reactions: No Reported Reaction Past Psychological History: Depression Additional Psychological History / Comment(s): Patient lost her spouse in july 2015 was 64 years gets tearfull when speaking of him, has periods of sadness but denies any thoughts of harming self. lives alone in own home was independant up till a week ago when loswer back pain got so bad had diff walking-had to use a cane. Smoking Status: Never smoker Past Alcohol Use History: None Reported, Rare Past Drug Use History: None Reported - Past Family History Father Family Medical History: Congestive Heart Failure (CHF) Mother Family Medical History: Cancer Additional Family Medical History / Comment(s): lung cancer Medications and Allergies Home Medications Medication Instructions Recorded Confirmed Type Aspirin 81 mg PO DAILY 08/22/15 10/04/17 History Simvastatin [Zocor] 40 mg PO DAILY 08/22/15 10/04/17 History Metoprolol Succinate [Toprol XL] 25 mg PO BID 09/26/15 10/04/17 History Multivitamins, Thera [Multivitamin 1 tab PO DAILY 09/26/15 10/04/17 History (formulary)] traMADol HCl [Ultram] 50 mg PO TID PRN 10/04/17 10/04/17 History Acetaminophen [Tylenol] 650 mg PO Q6H PRN #30 tab 10/07/17 Rx Bisacodyl [Dulcolax] 5 mg PO DAILY PRN tablet. 10/07/17 Rx Famotidine [Pepcid] 20 mg PO BID tab 10/07/17 Rx Losartan [Cozaar] 50 mg PO BID tab 10/07/17 Rx Polyethylene Glycol 3350 [Miralax] 17 gm PO DAILY PRN powd.pack 10/07/17 Rx Sennosides [Senokot] 8.6 mg PO BID PRN tab 10/07/17 Rx traMADol HCL [Ultram] 50 mg PO Q4HR PRN #60 tab 10/09/17 Rx Allergies Allergy/AdvReac Type Severity Reaction Status Date / Time Penicillins Allergy Rash/Hives Verified 10/04/17 15:11 enoxaparin sodium AdvReac Unknown Verified 10/04/17 15:11 [From Lovenox] heparin AdvReac Unknown Verified 10/04/17 15:11 Physical Examination Osteopathic Statement: *. No significant issues noted on an osteopathic structural exam other than those noted in the History and Physical/Consult. - Shoulder left Tenderness with palpation: anterior, clavicular (At her left upper extremity she has some tenderness to palpation over her midshaft clavicle. There is no open wounds lacerations or abrasions. There is no significant ecchymosis. She has some decreased range of motion at her left shoulder. She has good range of motion in her elbow wrist and hand and fingers. He is quite thin. There is no tenting of the skin.) Results - Labs Labs: Abnormal Lab Results - Last 24 Hours (Table) 11/23/17 Range/Units 10:41 Sodium 135 L (137-145) mmol/L Glucose 114 H (74-99) mg/dL H & H 11/23/17 Range/Units 10:41 Hgb 12.6 (11.4-16.0) gm/dL Hct 36.9 (34.0-46.0) % Result Diagrams: 11/23/17 10:41 11/23/17 10:41 - Diagnostic results Shoulder x-ray: report reviewed, image reviewed (X-rays of her left shoulder shows significant degeneration at her glenohumeral joint. She has a midshaft clavicle fracture with some angulation. Her bones are osteopenic. There is no dislocation.) Assessment and Plan Assessment: Acute left clavicle fracture mid shaft due to fall Osteoporosis, chronic Plan: Acute left clavicle fracture, due to fall Their fracture is midshaft and appears to be resting fairly stable with neurovascular intact Osteoporosis Small scalp laceration due to fall From an orthopedic standpoint her left clavicle fracture should do well with conservative treatment. She has been placed in a left upper extremity sling for comfort which she says is making her feel better already. It is okay for her to mobilize with her sling intact. She does not need to use the sling while in bed. Her clavicle should do well without any surgical or operative intervention and we will plan conservative treatment. He may take approximately 6 weeks to achieve good healing at the area. From an orthopedic standpoint is okay for patient to be discharged to home when she is stable with medicine. We can follow her up in approximately 1-2 weeks for recheck evaluation and repeat x-rays of her left Clavicle to monitor his progress as it heals. I discussed this with her, answered her questions best my ability, discussed the issues involved with her injury and she seems to understand. She should try to avoid use of her left upper extremity but should maintain motion at her elbow wrist and hand to try to decrease stiffness. I discussed this with her and she understands. We will follow her up on an outpatient basis.
--- NOTE | 2017-11-23 13:40 | P.HPIM ---
History of Present Illness 87-year-old pleasant female came in with the mechanical fall and found her left clavicle fracture severe pain in the left shoulder area because of that unable to move the shoulder. Patient has a left arm sling. Patient denied any numbness tingling in upper outer lower extremity is. Patient is by herself. Will need physical therapy evaluation and occupational therapy evaluation and may need subacute rehabilitation placement. I'll obtain basic labs Review of Systems REVIEW OF SYSTEMS: CONSTITUTIONAL: No fever, no malaise, no fatigue. HEENT: No recent visual problems or hearing problems. Denied any sore throat. CARDIOVASCULAR: No chest pain, orthopnea, PND, no palpitations, no syncope. PULMONARY: No shortness of breath, no cough, no hemoptysis. GASTROINTESTINAL: No diarrhea, no nausea, no vomiting, no abdominal pain. Normoactive bowel sounds. NEUROLOGICAL: No headaches, no weakness, no numbness. HEMATOLOGICAL: Denies any bleeding or petechiae. GENITOURINARY: Denies any burning micturition, frequency, or urgency. MUSCULOSKELETAL/RHEUMATOLOGICAL: Left shoulder pain as mentioned above ENDOCRINE: Denies any polyuria or polydipsia. The rest of the 14-point review of systems is negative. Past Medical History Past Medical History: Cancer, Heart Failure, Hyperlipidemia, Hypertension, Osteoarthritis (OA), Pneumonia Additional Past Medical History / Comment(s): pne x2, basal cell skin ca(face), ddd, sciatic nerce pain,diverticultis History of Any Multi-Drug Resistant Organisms: None Reported, MRSA Date of last positivie culture/infection: 06/09/15 MDRO Source:: Left Breast Past Surgical History: Adenoidectomy, Cholecystectomy, Hysterectomy, Orthopedic Surgery, Tonsillectomy Additional Past Surgical History / Comment(s): lee KNEE REPLACEMENTS,lee CARPAL TUNNEL,bunionectomy lt foot has screws in place, rt foot screws removed, neuroma 's removed from 2 toes, deceated septum repair, partial hysterectomy, kidney stone, colonoscopy. Past Anesthesia/Blood Transfusion Reactions: No Reported Reaction Past Psychological History: Depression Additional Psychological History / Comment(s): Patient lost her spouse in july 2015 was 64 years gets tearfull when speaking of him, has periods of sadness but denies any thoughts of harming self. lives alone in own home was independant up till a week ago when loswer back pain got so bad had diff walking-had to use a cane. Smoking Status: Never smoker Past Alcohol Use History: None Reported, Rare Past Drug Use History: None Reported - Past Family History Father Family Medical History: Congestive Heart Failure (CHF) Mother Family Medical History: Cancer Additional Family Medical History / Comment(s): lung cancer Medications and Allergies Home Medications Medication Instructions Recorded Confirmed Type Aspirin 81 mg PO DAILY 08/22/15 11/23/17 History Simvastatin [Zocor] 40 mg PO DAILY 08/22/15 11/23/17 History Metoprolol Succinate [Toprol XL] 25 mg PO BID 09/26/15 11/23/17 History Multivitamins, Thera [Multivitamin 1 tab PO DAILY 09/26/15 11/23/17 History (formulary)] Acetaminophen [Tylenol] 650 mg PO Q6H PRN #30 tab 10/07/17 11/23/17 Rx Sennosides [Senokot] 8.6 mg PO BID PRN tab 10/07/17 11/23/17 Rx Losartan-Hctz 50-12.5 mg [Hyzaar 1 tab PO DAILY 11/23/17 11/23/17 History 50-12.5] Allergies Allergy/AdvReac Type Severity Reaction Status Date / Time Penicillins Allergy Rash/Hives Verified 11/23/17 12:55 enoxaparin sodium AdvReac Unknown Verified 11/23/17 12:55 [From Lovenox] heparin AdvReac Unknown Verified 11/23/17 12:55 Physical Exam Vitals: Vital Signs Temp Pulse Pulse Resp BP BP Pulse Ox 11/23/17 06:15 97.6 F 67 18 186/80 98 11/23/17 00:00 16 11/22/17 21:27 97.9 F 16 160/66 99 11/22/17 18:49 69 16 100 11/22/17 18:06 97.2 F L 63 18 158/79 100 Intake and Output 11/22/17 11/23/17 11/23/17 22:59 06:59 14:59 Intake Total 150 590 Output Total 350 Balance 150 240 Intake: Amount of Fluid Infused ( 30 ml) Oral 120 590 Output: Urine 350 Other: Voiding Method Bedside Commode Bedside Commode # Voids 1 3 Weight 46.266 kg 46.266 kg PHYSICAL EXAMINATION: GENERAL: The patient is alert and oriented x3, not in any acute distress. Well developed, well nourished. HEENT: Pupils are round and equally reacting to light. EOMI. No scleral icterus. No conjunctival pallor. Normocephalic, atraumatic. No pharyngeal erythema. No thyromegaly. CARDIOVASCULAR: S1 and S2 present. No murmurs, rubs, or gallops. PULMONARY: Chest is clear to auscultation, no wheezing or crackles. ABDOMEN: Soft, nontender, nondistended, normoactive bowel sounds. No palpable organomegaly. MUSCULOSKELETAL: Active and plays passive motions of the left shoulder restricted because of the clavicle fraction patient has a left arm sling EXTREMITIES: No cyanosis, clubbing, or pedal edema. NEUROLOGICAL: Gross neurological examination did not reveal any focal deficits. SKIN: No rashes. Results CBC & Chem 7: 11/23/17 10:41 11/23/17 10:41 Labs: Abnormal Lab Results - Last 24 Hours (Table) 11/23/17 Range/Units 10:41 Sodium 135 L (137-145) mmol/L Glucose 114 H (74-99) mg/dL Thrombosis Risk Factor Assmnt - Choose All That Apply Any of the Below Risk Factors Present?: No Other Risk Factors: No Each Risk Factor Represents 3 Points: Age 75 years or older Thrombosis Risk Factor Assessment Total Risk Factor Score: 3 Thrombosis Risk Factor Assessment Level: Very Low Risk Assessment and Plan Plan: -Left clavicular fracture: Secondary to treatment with a sling. Patient will need physical therapy and occupational therapy and placement -Osteoporosis -Hyperlipidemia continue with atorvastatin -Hypertension patient is on Cozaar which will be continued will obtain basic metabolic profile as mentioned above -History of basal cell cancer in the past
[2017-11-23] MEDS: traMADol 50 MG TAB PO PRN ×2 (15:14→19:39)
[2017-11-23] MEDS: SODIUM CHLORIDE 0.9% 1,000 ML IV SCH ×2 (15:48→19:40)
[2017-11-23] MEDS ORDERED: HEPARIN SODIUM,PORCINE 5,000 UNIT/ML 1 ML VIAL SQ SCH (21:00)
[2017-11-23] MEDS: ACETAMINOPHEN TAB 325 MG TAB PO PRN (21:04)
[2017-11-24] MEDS: ACETAMINOPHEN TAB 325 MG TAB PO PRN ×3 (03:43→21:26)
[2017-11-24] MEDS: traMADol 50 MG TAB PO PRN ×4 (03:43→21:27)
[2017-11-24 07:47] LABS: Anion Gap 7 mmol/L; Blood Urea Nitrogen 13 mg/dL (7-17); Calcium 8.8 mg/dL (8.4-10.2); Carbon Dioxide 27 mmol/L (22-30); Chloride 102 mmol/L (98-107); Glucose 87 mg/dL (74-99); Sodium 136 mmol/L (137-145)
[2017-11-24] MEDS: ATORVASTATIN 20 MG TAB PO SCH (08:18)
[2017-11-24] MEDS: METOPROLOL SUCCINATE (ER) 25 MG TAB.ER.24H PO SCH ×2 (08:18→21:26)
[2017-11-24] MEDS: LOSARTAN 50 MG TAB PO SCH ×2 (08:18→21:26)
[2017-11-24] MEDS: FAMOTIDINE 20 MG TAB PO SCH ×2 (08:18→22:39)
[2017-11-24] MEDS: ASPIRIN 81 MG PO SCH (08:18)
--- NOTE | 2017-11-24 10:06 | P.PN ---
Subjective Progress Note Date: 11/24/17 11-23-2017-Per Dr Perales 87-year-old pleasant female came in with the mechanical fall and found her left clavicle fracture severe pain in the left shoulder area because of that unable to move the shoulder. Patient has a left arm sling. Patient denied any numbness tingling in upper outer lower extremity is. Patient is by herself. Will need physical therapy evaluation and occupational therapy evaluation and may need subacute rehabilitation placement. I'll obtain basic labs 11/24/2017 Patient seen and examined at the bedside on rounds with Dr. Neely. Patients left upper extremities remains in sling. She states her pain is tolerable at this time. Denies shortness of breath or coughing. Denies chest pain or pressure. Tolerating oral intake without nausea or vomiting. Orthopedics has been consulted to evaluate patient's left clavicle fracture. No surgical intervention was recommended. Objective - Vital Signs Vital signs: Vital Signs Temp 97.4 F L 11/24/17 05:25 Pulse 52 L 11/24/17 05:25 Resp 18 11/24/17 05:25 BP 123/65 11/24/17 05:25 Pulse Ox 99 11/24/17 05:25 Intake & Output 11/23/17 11/24/17 11/24/17 18:59 06:59 18:59 Intake Total 500 790 Balance 500 790 Intake: Intake, IV Titration 540 Amount Sodium Chloride 0.9% 1, 540 000 ml @ 60 mls/hr IV . [id number] [facility] Rx#:[id number] Oral 500 250 Other: Voiding Method Bedside Commode Bedside Commode # Voids 4 1 - Constitutional Constitutional Comment(s): 87-year-old female General appearance: Present: average body habitus - EENT Eyes: Present: EOMI, PERRLA ENT: Present: hearing grossly normal - Neck Neck: Present: normal ROM - Respiratory Respiratory: bilateral: CTA, negative: rales, rhonchi, wheezing - Cardiovascular Rhythm: regular Heart sounds: normal: S1, S2 - Gastrointestinal General gastrointestinal: Present: normal bowel sounds, soft - Integumentary Integumentary: Present: normal - Neurologic Neurologic: Present: CNII-XII intact - Musculoskeletal Musculoskeletal: Present: generalized weakness - Psychiatric Psychiatric: Present: A&O x's 3, appropriate affect, intact judgment & insight - Labs CBC & Chem 7: 11/23/17 10:41 11/24/17 07:04 Labs: Abnormal Lab Results - Last 24 Hours (Table) 11/23/17 11/24/17 Range/Units 10:41 07:04 Sodium 135 L 136 L (137-145) mmol/L Glucose 114 H (74-99) mg/dL Assessment and Plan Plan: ASSESSMENT: Left clavicular fracture, secondary to fall from standing Recent hospitalization for acute T11 wedge compression fracture deformity at approximately 25-50% height loss, secondary to fall from standing History of nondisplaced inferior pubic rami fracture on the right of indeterminate age Hyperlipidemia Hypertension Osteoporosis Depression PLAN: Orthopedics on consult. Appreciate recommendations and input Home meds as appropriate Monitor labs GI/DVT prophylaxis Activity as tolerated Continue sling to left upper extremity PT/OT Monitor vital signs and address as appropriate Discharge planning: Patient requesting [facility] the time of discharge for [facility]. Will discuss with case management Further recommendations pending patient's course Patient is stable for discharge once discharge plan has been finalized Nurse practitioner note has been reviewed by physician. Signing provider agrees with the documented findings, assessment, and plan of care.
[2017-11-24 14:36] VITALS: RESP 16
[2017-11-25] MEDS: SODIUM CHLORIDE 0.9% 1,000 ML IV SCH ×2 (00:57→17:10)
[2017-11-25] MEDS: ACETAMINOPHEN TAB 325 MG TAB PO PRN ×3 (03:24→17:10)
[2017-11-25] MEDS: traMADol 50 MG TAB PO PRN ×4 (03:25→21:18)
[2017-11-25] MEDS: LOSARTAN 50 MG TAB PO SCH ×2 (08:03→21:01)
[2017-11-25] MEDS: ASPIRIN 81 MG PO SCH (08:03)
[2017-11-25] MEDS: METOPROLOL SUCCINATE (ER) 25 MG TAB.ER.24H PO SCH ×2 (08:03→21:01)
[2017-11-25] MEDS: ATORVASTATIN 20 MG TAB PO SCH (08:03)
[2017-11-25] MEDS: FAMOTIDINE 20 MG TAB PO SCH (08:03)
--- NOTE | 2017-11-25 11:43 | P.PN ---
Subjective Progress Note Date: 11/25/17 11-23-2017-Per Dr Perales 87-year-old pleasant female came in with the mechanical fall and found her left clavicle fracture severe pain in the left shoulder area because of that unable to move the shoulder. Patient has a left arm sling. Patient denied any numbness tingling in upper outer lower extremity is. Patient is by herself. Will need physical therapy evaluation and occupational therapy evaluation and may need subacute rehabilitation placement. I'll obtain basic labs 11/24/2017 Patient seen and examined at the bedside on rounds with Dr. Neely. Patients left upper extremities remains in sling. She states her pain is tolerable at this time. Denies shortness of breath or coughing. Denies chest pain or pressure. Tolerating oral intake without nausea or vomiting. Orthopedics has been consulted to evaluate patient's left clavicle fracture. No surgical intervention was recommended. 11/26/2017 Patient seen and examined at the bedside on rounds with Dr. Neely. Patients left upper extremities remains in sling. She states her pain is tolerable at this time. Denies shortness of breath or coughing. Denies chest pain or pressure. Tolerating oral intake without nausea or vomiting. Orthopedics has been consulted to evaluate patient's left clavicle fracture. No surgical intervention was recommended. The patient is requesting [facility] at the time of discharge. Currently awaiting prior auth. Objective - Vital Signs Vital signs: Vital Signs Temp 97.8 F 11/25/17 09:20 Pulse 68 11/25/17 09:20 Resp 16 11/25/17 09:20 BP 136/66 11/25/17 09:20 Pulse Ox 100 11/25/17 09:20 Intake & Output 11/24/17 11/25/17 11/25/17 18:59 06:59 18:59 Intake Total 620 540 Balance 620 540 Weight 46.266 kg 45 kg 45 kg Intake: Intake, IV Titration 420 540 Amount Sodium Chloride 0.9% 1, 420 540 000 ml @ 60 mls/hr IV . [id number] [facility] Rx#:[id number] Oral 200 Other: Voiding Method Bedside Commode Bedside Commode Bedside Commode # Voids 1 - Constitutional Constitutional Comment(s): 87 year old female. Left arm remains in sling secondary to clavicle fracture. General appearance: Present: average body habitus, cooperative - EENT Eyes: Present: EOMI, PERRLA ENT: Present: hearing grossly normal - Neck Neck: Present: normal ROM - Respiratory Respiratory: bilateral: CTA - Cardiovascular Rhythm: regular Heart sounds: normal: S1, S2 - Gastrointestinal General gastrointestinal: Present: normal bowel sounds, soft - Integumentary Integumentary: Present: normal. Absent: cellulitis, cyanotic, flushed, jaundiced - Neurologic Neurologic: Present: CNII-XII intact - Musculoskeletal Musculoskeletal: Present: generalized weakness - Psychiatric Psychiatric: Present: A&O x's 3 - Labs CBC & Chem 7: 11/23/17 10:41 11/24/17 07:04 Assessment and Plan Plan: ASSESSMENT: Left clavicular fracture, secondary to fall from standing Recent hospitalization for acute T11 wedge compression fracture deformity at approximately 25-50% height loss, secondary to fall from standing History of nondisplaced inferior pubic rami fracture on the right of indeterminate age Hyperlipidemia Hypertension Osteoporosis Depression PLAN: Orthopedics on consult. Appreciate recommendations and input Home meds as appropriate Monitor labs GI/DVT prophylaxis Activity as tolerated Continue sling to left upper extremity PT/OT Monitor vital signs and address as appropriate Discharge planning: Patient requesting [facility] at the time of discharge for [facility]. Further recommendations pending patient's course Patient is cleared for discharge when insurance authorization has been received Nurse practitioner note has been reviewed by physician. Signing provider agrees with the documented findings, assessment, and plan of care.
[2017-11-26] MEDS: ACETAMINOPHEN TAB 325 MG TAB PO PRN ×3 (00:45→14:55)
[2017-11-26] MEDS: traMADol 50 MG TAB PO PRN ×2 (05:31→14:55)
[2017-11-26 05:55] VITALS: BP 121/65; PULSE 63; TEMP 98
[2017-11-26] MEDS: SODIUM CHLORIDE 0.9% 1,000 ML IV SCH (07:45)
[2017-11-26] MEDS: ATORVASTATIN 20 MG TAB PO SCH (07:49)
[2017-11-26] MEDS: ASPIRIN 81 MG PO SCH (07:49)
[2017-11-26] MEDS: LOSARTAN 50 MG TAB PO SCH (07:50)
[2017-11-26] MEDS: METOPROLOL SUCCINATE (ER) 25 MG TAB.ER.24H PO SCH (07:50)
[2017-11-26] MEDS ORDERED: FAMOTIDINE 20 MG TAB PO SCH (09:00)
--- NOTE | 2017-11-26 09:09 | P.DS ---
Providers Date of admission: 11/22/17 20:07 Expected date of discharge: 11/26/17 Attending physician: Kristopher Neely Consults: 11/22/17 20:09 Consult Physician Urgent Consulting Provider: Kelvin Jose Consult Reason/Comments: Left clavicular fracture Do you want consulting provider notified?: Yes Primary care physician: Kristopher [facility] Course: 11-23-2017-Per Dr Perales 87-year-old pleasant female came in with the mechanical fall and found her left clavicle fracture severe pain in the left shoulder area because of that unable to move the shoulder. Patient has a left arm sling. Patient denied any numbness tingling in upper outer lower extremity is. Patient is by herself. Will need physical therapy evaluation and occupational therapy evaluation and may need subacute rehabilitation placement. I'll obtain basic labs 11/24/2017 Patient seen and examined at the bedside on rounds with Dr. Neely. Patients left upper extremities remains in sling. She states her pain is tolerable at this time. Denies shortness of breath or coughing. Denies chest pain or pressure. Tolerating oral intake without nausea or vomiting. Orthopedics has been consulted to evaluate patient's left clavicle fracture. No surgical intervention was recommended. 11/25/2017 Patient seen and examined at the bedside on rounds with Dr. Neely. Patients left upper extremities remains in sling. She states her pain is tolerable at this time. Denies shortness of breath or coughing. Denies chest pain or pressure. Tolerating oral intake without nausea or vomiting. Orthopedics has been consulted to evaluate patient's left clavicle fracture. No surgical intervention was recommended. The patient is requesting [facility] at the time of discharge. Currently awaiting prior auth. 11/26/2017 Patient seen and examined at the bedside on rounds with Dr. Neely. Patient is awake and alert. Sitting up in the chair. Patient denies chest pain or pressure. Denies shortness of breath. She complains of mild tenderness to left clavicular area. She remained hemodynamic stable. Discussed discharge plan with social work yesterday. [facility] currently does not have beds available. Patient is not requesting to go to [facility]. She has been deemed stable for discharge. She is to follow up on an outpatient basis after discharge from subacute rehab. DISCHARGE DIAGNOSIS: Left clavicular fracture, secondary to fall from standing Recent hospitalization for acute T11 wedge compression fracture deformity at approximately 25-50% height loss, secondary to fall from standing History of nondisplaced inferior pubic rami fracture on the right of indeterminate age Hyperlipidemia Hypertension Osteoporosis Depression Nurse practitioner note has been reviewed by physician. Signing provider agrees with the documented findings, assessment, and plan of care. Patient Condition at Discharge: Stable Plan - Discharge Summary Discharge Rx Participant: Yes New Discharge Prescriptions: Continue Simvastatin [Zocor] 40 mg PO DAILY Aspirin 81 mg PO DAILY Multivitamins, Thera [Multivitamin (formulary)] 1 tab PO DAILY Metoprolol Succinate [Toprol XL] 25 mg PO BID Acetaminophen [Tylenol] 650 mg PO Q6H PRN #30 tab PRN Reason: Pain Sennosides [Senokot] 8.6 mg PO BID PRN tab PRN Reason: Constipation Losartan-Hctz 50-12.5 mg [Hyzaar 50-12.5] 1 tab PO DAILY Discharge Medication List Aspirin 81 mg PO DAILY 08/22/15 [History] Simvastatin [Zocor] 40 mg PO DAILY 08/22/15 [History] Metoprolol Succinate [Toprol XL] 25 mg PO BID 09/26/15 [History] Multivitamins, Thera [Multivitamin (formulary)] 1 tab PO DAILY 09/26/15 [History ] Acetaminophen [Tylenol] 650 mg PO Q6H PRN #30 tab 10/07/17 [Rx] Sennosides [Senokot] 8.6 mg PO BID PRN tab 10/07/17 [Rx] Losartan-Hctz 50-12.5 mg [Hyzaar 50-12.5] 1 tab PO DAILY 11/23/17 [History] Follow up Appointment(s)/Referral(s): Kelvin Jose DO [Doctor of Osteopathic Medicine] - 1 Week Kristopher Neely DO [Primary Care Provider] - 1-2 days Activity/Diet/Wound Care/Special Instructions: Avoid use of left shoulder. Should use left upper extremity sling for comfort. Try to do daily gentle range of motion at the left elbow wrist and hand to prevent stiffness Discharge Disposition: TRANSFER TO SNF/ECF
== END 2017-11-26 15:50 ==
LOC: EC 18:02 → 3SUR 20:07 → 5MS5E 11-23 06:32
PROVIDERS: ADMIT Family Medicine; ATTEND Family Medicine
DX: S42.022A Displaced fracture of shaft of left clavicle, initial encounter for closed fracture (principal); S01.112A Laceration without foreign body of left eyelid and periocular area, initial encounter; S01.01XA Laceration without foreign body of scalp, initial encounter; S51.012A Laceration without foreign body of left elbow, initial encounter; R26.89 Other abnormalities of gait and mobility; I11.0 Hypertensive heart disease with heart failure; I50.9 Heart failure, unspecified; E78.5 Hyperlipidemia, unspecified; K57.90 Diverticulosis of intestine, part unspecified, without perforation or abscess without bleeding; F32.9 Major depressive disorder, single episode, unspecified; M19.012 Primary osteoarthritis, left shoulder; M85.80 Other specified disorders of bone density and structure, unspecified site; M47.812 Spondylosis without myelopathy or radiculopathy, cervical region; M81.0 Age-related osteoporosis without current pathological fracture; S22.080A Wedge compression fracture of T11-T12 vertebra, initial encounter for closed fracture; M54.40 Lumbago with sciatica, unspecified side; Z79.82 Long term (current) use of aspirin; Z79.899 Other long term (current) drug therapy; Z88.0 Allergy status to penicillin; Z88.8 Allergy status to other drugs, medicaments and biological substances; Z96.653 Presence of artificial knee joint, bilateral; Z90.49 Acquired absence of other specified parts of digestive tract; Z90.710 Acquired absence of both cervix and uterus; Z87.442 Personal history of urinary calculi; Z87.81 Personal history of (healed) traumatic fracture; Z87.01 Personal history of pneumonia (recurrent); Z85.828 Personal history of other malignant neoplasm of skin; Z86.14 Personal history of Methicillin resistant Staphylococcus aureus infection; W01.0XXA Fall on same level from slipping, tripping and stumbling without subsequent striking against object, initial encounter; Y92.009 Unspecified place in unspecified non-institutional (private) residence as the place of occurrence of the external cause; Z91.81 History of falling; Z82.49 Family history of ischemic heart disease and other diseases of the circulatory system; Z80.1 Family history of malignant neoplasm of trachea, bronchus and lung
CPT/HCPCS: 99285 ×2; 97162; 97166; 80048 ×2; 85027; 73030; 73080; 72125; 70450; G0378 ×6